=== PATIENT | female | born 1965 | race Caucasian/White ===

== ENCOUNTER 2017-10-15 13:00 | Emergency (ER) | payer OTHER ==
[2017-10-15 13:53] VITALS: BP 137/72
--- NOTE | 2017-10-15 14:12 | UC ---
Skin Complaint HPI - History of Current Complaint Chief Complaint: UCSkin Time Seen by Provider: 10/15/17 14:05 Stated Complaint: BUMP ON BACK OF HEAD Hx Last Menstrual Period: july 13, 2014 Onset/Duration: Lasting Days Skin Exposure Onset/Duration: Days Ago Timing: Constant Onset Severity: Moderate Pain Intensity: 4 Location: Other - posterior left scalp Aggravating Factor(s): Touch - Allergy/Home Medications Allergies/Adverse Reactions: Allergies Allergy/AdvReac Type Severity Reaction Status Date / Time Sulfa (Sulfonamide Allergy See Comment Verified 10/15/17 13:47 Antibiotics) Home Medications: Home Medications Levothyroxine TAB* [Synthroid 25 MCG TAB*] 25 mcg PO DAILY 10/15/17 [History Confirmed 10/15/17] Review of Systems Constitutional: Negative Skin: Other - left posterior occipital lesion, Eyes: Negative ENT: Negative Respiratory: Negative Cardiovascular: Negative Gastrointestinal: Negative Genitourinary: Negative Motor: Negative Neurovascular: Negative Musculoskeletal: Negative Neurological: Negative Psychological: Negative Is Patient Immunocompromised?: No All Other Systems Reviewed And Are Negative: Yes PMH/Surg Hx/FS Hx/Imm Hx Previously Healthy: Yes - Surgical History Surgical History: Yes Surgery Procedure, Year, and Place: fibroid removal- - Social History Alcohol Use: Rare Substance Use Type: None Smoking Status (MU): Never Smoked Tobacco Type: Cigarettes Have You Smoked in the Last Year: No Physical Exam Triage Information Reviewed: Yes Appearance: Pain Distress, Obese Vital Signs: Initial Vital Signs Temp 36.7 C 10/15/17 13:48 Pulse 96 10/15/17 13:48 Resp 16 10/15/17 13:48 BP 137/72 10/15/17 13:48 Pulse Ox 100 10/15/17 13:48 Vital Signs Reviewed: Yes Eye Exam: Normal Eyes: Positive: Conjunctiva Clear ENT Exam: Normal ENT: Positive: Normal ENT inspection Dental Exam: Normal Neck exam: Normal, Other - tender posterior cervical adenopathy Neck: Positive: Enlarged Nodes @ - left posterior cervical Respiratory Exam: Normal Respiratory: Positive: Chest non-tender Cardiovascular Exam: Normal Skin: Positive: Other - left posterior occiput with scabbed lesion Course/Dx - Diagnoses Provider Diagnoses: lymphadenitis, skin lesion Discharge - Sign-Out/Discharge Documenting (check all that apply): Patient Departure - Discharge Plan Condition: Good Disposition: HOME Prescriptions: cephALEXin [Cephalexin] 500 mg PO TID #21 tab Patient Education Materials: Adenitis (ED) Referrals: Mulu Monroy PA [Primary Care Provider] - - Billing Disposition and Condition Condition: GOOD Disposition: Home
[2017-10-15 19:34] LABS: ABS Basophils 0.1 10^3/ul (0-0.2); ABS Eosinophils 0.2 10^3/ul (0-0.6); ABS Lymphocytes 1.6 10^3/ul (1.0-4.8); ABS Monocytes 0.5 10^3/ul (0-0.8); ABS Neutrophils 3.2 10^3/ul (1.5-7.7); ABS Nucleated RBC 0 10^3/ul; Eosinophil % 2.8 % (0-6); Hematocrit 46 % (35-47); Hemoglobin 15.4 g/dl (12.0-16.0); Lymphocyte % 29.2 % (25-47); Mean Corpuscular HGB Conc 34 g/dl (31-36); Mean Corpuscular Hemoglobin 30 pg (27-31); Mean Corpuscular Volume 90 fL (80-97); Nucleated Red Blood Cells % 0.1; Platelet Count Platelets clumped. 10^3/ul (150-450); Red Blood Count 5.11 10^6/ul (4.00-5.40); Red Cell Distribution Width 14 % (10.5-15); White Blood Count 5.5 10^3/ul (3.5-10.8)
--- NOTE | 2017-10-16 08:07 | UC ---
- Progress Note Progress Note: RN to call pt. WBC / H/H ok, but platelets clumped. Monocytes a little elevated, nonspecific. Recommend f/u with PCP, next 1-2 weeks. Seek medical attention for worse or new problems. Discharge - Sign-Out/Discharge Documenting (check all that apply): Post-Discharge Follow Up - Discharge Plan Condition: Good Disposition: HOME Prescriptions: cephALEXin [Cephalexin] 500 mg PO TID #21 tab Patient Education Materials: Adenitis (ED) Referrals: Mulu Monroy PA [Primary Care Provider] - - Billing Disposition and Condition Condition: GOOD Disposition: Home
== END 2017-10-15 15:09 | disposition home or self-care (01) ==
LOC: UCCORT 13:00
DX: I88.9 Nonspecific lymphadenitis, unspecified (principal); L98.9 Disorder of the skin and subcutaneous tissue, unspecified; Z88.2 Allergy status to sulfonamides
CPT/HCPCS: 36415; 85025; 86617; 86618; 99212; G0463

== ENCOUNTER 2018-06-10 16:48 | Emergency (ER) | payer OTHER ==
--- OUTSIDE RECORDS SUMMARY | 2018-06-10 17:04 | XMS REPORT | Continuity of Care Document ---
:1965 External Reference #:[id number] Author Name Gerald Prado MD Address [address] [place] [address] Care Team Providers Name Role Phone Shira Monroy RPAC Care Team Information Cath Lab Technologist Unavailable Shira Monroy RPAC Primary Care Physician Unavailable Payers Date Identification Numbers Payment Provider Subscriber Policy Number: [id number] [employer] Isaiah Cheema PayID: [id number] [address] [place] [address] Policy Number: [id number] [facility] Isaiah Campa Curtis PayID: [id number] [address] [place] [address] Advance Directives Description No Information Available Problems Date Description Provider Status Onset: 11/27/2010 Abnormal cervical Papanicolaou smear Shira Monroy RPAC Active Note: remote Onset: 11/27/2010 Allergic rhinitis Shira Monroy RPAC Active Onset: 11/27/2010 Obesity Shira Monroy RPAC Active Onset: 11/27/2010 Intrinsic asthma without status Shira Monroy RPAC Active asthmaticus Onset: 10/03/2014 Obstructive sleep apnea of adult Shira Monroy RPAC Active Note: APAP Onset: 11/06/2015 Uterine leiomyoma Shira Monroy RPAC Active Note: several, with abnl menses Onset: 06/29/2017 Chest pain Shira Monroy RPAC Active Onset: 06/29/2017 Mild persistent asthma Shira Monroy RPAC Active Onset: 06/29/2017 Palpitations Shira Monroy RPAC Active Onset: 10/31/2017 Hypothyroidism Shira Monroy, 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 Resolved Resolved: 06/29/2017 Onset: 04/28/2017 Otitis media Rodrigue Smith M.D. Resolved Resolved: 06/29/2017 Family History Date Family Member(s) Observation Comments Father CAD sudden in 60's Father due to Heart Disease () Father due to Diabetes () - age 69 Mother Osteoporosis Mother due to Diabetes () Mother Diabetes Mother due to Heart Disease () - age 89 Mother CHF Mother Hypertension First Son 15 First Son Non Contributory First Daughter Non Contributory First Daughter 27 First Brother Diabetes First Brother due to Unknown Causes () First Brother Spinal injury trauma Second Brother Alive First Sister CAD premature, 40's First Sister Alive Second Sister Alive Social History Type Date Description Comments Sex Unknown Marital Status Lives With Son Lives With Diet Patient follows no dietary restrictions 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 Also works at [employer] Independent with all ADL's Tobacco Use Start: Unknown End: Former Cigarette Smoker in teens only Unknown ETOH Use Denies alcohol use Recreational Drug Use Denies Drug Use Tobacco Use Start: Unknown End: Patient is a former quit many years ago. smoker Smoking Status Reviewed: 05/18/18 Patient is a former quit many years ago. smoker Allergies, Adverse Reactions, Alerts Date Description Reaction Status Severity Comments 07/19/2013 Sulfa Antibiotics lips swell Active 03/06/2017 Amoxicillin pruritis Active 07/13/2017 Cetirizine dizziness Active Medications Medication Date Status Form Strength Qnty SIG Indications Ordering Provider Fluticasone 01/19/20 Active Suspension 50mcg/Act 2 sprays Ortez, Propionate 18 intranasa Susanne, l every [employer] day Ibuprofen 12/05/19 Active Tablets 800mg 60tab take one M54.2 Tam, 18 s tablet by Amandeep, mouth M.D. every 6- 8 hours with food as needed for pain Levothyroxine 11/01/19 Active Tablets 75mcg 90tab 1 tab by Tam, Sodium 18 s mouth Amandeep, every day M.D. Latanoprost 08/11/19 Active Solution 0.005% 2.500 1 drop H40.013 Prado , 18 ml each eye MD Gerald at night Montelukast 06/22/19 Active Tablets 10mg 90tab take one Tam, Sodium 14 s tablet by Amandeep, mouth M.D. every day Loratadine Active Tablets 10mg 1 by Unknown 00 mouth every day Ventolin HFA Active Aerosol 108(90Bas take 2 Unknown 00 e) puffs mcg/Act every 6 hours as needed for shortness of breath. Albuterol Active Nebulizer (2.5mg/3M 75ml nebulized Catalino, Sulfate 00 L) 0.083% every 4 MD Guillermina hours as needed for SOB Prednisone 05/14/19 Hx Tablets 10mg 21tab 4 po J20.9 Catalino, 19 - s daily x 2 MD Guillermina 05/22/19 days, 19 then 3 po daily x 2 days, then 2 po daily x 2 days, 1 po daily x 3 days Ibuprofen 12/05/19 Hx Tablets 800mg 90tab one tab M54.2 Tam, 18 - s by mouth Amandeep, 12/05/19 q 6 hrs M.D. 18 as needed, with food, for pain Levothyroxine 07/10/19 Hx Tablets 25mcg 30tab Take One Tam, Sodium 18 - s Tablet By Amandeep, 11/01/19 Mouth M.D. 18 Every Day Metoprolol 06/30/19 Hx Tablets ER 25mg 90tab take one R07.9 Tam, Succinate ER 18 - 24HR s tablet by Amandeep, Unknown mouth M.D. once daily in the evening Azithromycin 04/28/19 Hx Tablets 250mg 6tabs 2 tabs by H66.92 Steen[place]en 18 - mouth day , 06/30/19 onealyssa 18 one tab M.D. by mouth days 2-5 Ibuprofen 02/14/20 Hx Tablets 600mg 60tab 1 tab by Tam, 17 - s mouth Amandeep, 08/11/19 every 6 M.D. 18 hours with food, as needed for pain Premarin 02/14/20 Hx Cream 0.625mg/G 30gm 04/09 N77.1 Yonatan, 17 - M applicato Amandeep, Unknown rful M.D. intravagi noel weekly as needed Amoxicillin 02/14/20 Hx Tablets 875mg 20tab 1 tab by J06.9 Yonatan, 17 - s mouth Amandeep, 03/06/20 twice a M.D. 17 day Oxybutynin 12/04/19 Hx Tablets ER 5mg 30tab 1 tab by Yonatan, Chloride ER 17 - 24HR s mouth Amandeep, Unknown every M.D. evening Amoxicillin/Cla 10/16/19 Hx Tablets 875-125mg 20tab take 1 J01.90 David vulanate 17 - s tablet [place]ras, Potassium 10/27/19 every 12 M.D. 17 hours for 10 days Progesterone 05/15/19 Hx Capsules 200mg 7caps 1 by N92.4 Yonatan Micronized 17 - mouth Amandeep, 10/16/19 every day M.D. 17 Work Note 05/15/19 Hx Evaluated N92.4 Yonatan 17 - at [facility], 11/26/19 Primary M.D. 17 Care on 05/15/16. Excuse from work until 05/17/16 Cephalexin 05/07/19 Hx Tablets 500mg 20tab 1 tab (or J02.9 Yonatan 17 - s cap) by Amandeep, 05/17/19 mouth M.D. 17 twice a day Advair HFA 04/14/19 Hx Aerosol 230-21mcg inhale Asthma & 17 - /Act two puffs Allergy 06/30/19 by mouth Associate 18 twice a s, pc day Permethrin 04/02/20 Hx Cream 5% 180gm apply to [place] 16 - full body Norman Herr, 05/07/19 neck down DO 17 at night - leave on 8-12 hours then wash off. repeat in 2 wks Cyproheptadine 04/02/20 Hx Tablets 4mg 30tab 1 tab by KWABENA French 16 - s mouth Norman Herr, 05/07/19 three DO 17 times a day as needed for itching Cephalexin 02/05/20 Hx Tablets 500mg 30tab 1 tab (or J06.9 Dariel 16 - s cap) by Norman Herr, 05/07/19 mouth DO 17 three times a day Wrist 09/13/19 Hx Misc One for use G56.01 Dariel, Splint/Cock-Up/ 16 - at Norman Herr, Right/Canvas/La 09/30/19 nighttime DO rge 16 . (medium or large) Meclizine HCL 09/13/19 Hx Tablets 12.5mg 30tab one-two H81.10 Dariel 16 - s tabs Norman Herr, 02/06/20 every 6 DO 16 hour by mouth as needed dizziness Work Note 09/13/19 Hx Evaluated Dariel 16 - at Norman Herr, 10/29/19 Primary DO 16 Care for dizziness and elevated BP reading. Please excuse from work today Latanoprost 07/26/19 Hx Solution 0.005% 1unit 1 drop H40.013 Johan 16 - s each eye MD Gerald 10/16/19 at night 17 Ventolin HFA 07/08/19 Hx Aerosol 108mcg/Ac 2unit 1-2 Homa, 15 - t s inhalatio Ita 10/24/19 ns every , MD Alaniz 4 hours as needed Cetirizine HCL 07/08/19 Hx Tablets 10mg 30tab 1 by Luther, 15 - s mouth Ita 10/24/19 every day , MD Alaniz as needed for allergy symptoms Advair HFA 03/06/20 Hx Aerosol 230-21mcg inhale Unknown 14 - /Act two puffs 06/21/19 by mouth 16 twice a day Advair HFA 02/01/20 Hx Aerosol 115/21 12uni use 1-2 Luther, 13 - ts inhalatio Ita 10/28/19 ns twice , 15 daily Hydrocortisone 07/20/19 Hx Cream 1% Thin Homa, Plus 13 - layer to Ita 06/21/19 itchy , 16 area on (L) chest tid Albuterol 06/08/19 Hx Nebulizer (2.5mg/3M 90uni nebulized Luther, Sulfate 13 - L) 0.083% ts every 6 Ita 08/11/19 hours as , 18 needed Ibuprofen 03/25/20 Hx Tablets 800mg 90tab one tab Homa, 11 - s by mouth Ita 06/21/19 q 6 hrs , 16 as needed with food for pain Proair HFA Hx Aerosol 108(90Bas 1-2 Unknown 00 - e) inhalatio 06/21/19 mcg/Act ns every 16 4 hours as needed Loratadine Hx Tablets 10mg 30tab 1 tab by Dariel 00 - s mouth Norman Hagan., 02/06/20 every day DO 16 as needed for head congestio n/allergi es Advair Diskus Hx Aerosol 250-50mcg use 1 Unknown 00 - /Dose breath 05/07/19 twice a 17 day Ventolin HFA Hx Aerosol 108(90Bas 1-2 puffs Unknown 00 - e) every 4-6 08/11/19 mcg/Act hours as 18 needed Loratadine Hx Capsules 10mg 1 by Unknown 00 - mouth 06/30/19 every day 18 Ibuprofen Hx Capsules 200mg as needed Unknown - 02/14/20 17 Breo Ellipta Hx Aerosol 200-25mcg Rubinstei 00 - /Inh n, 08/11/19 Alfredito Walters MD Cetirizine HCL Hx Tablets 10mg 1 tablet Rubinstei 00 - once n, 07/14/19 daily. Alfredito Walters MD Cetirizine HCL Hx Tablets 10mg 1 by Unknown 00 - mouth 08/11/19 every day 18 Latanoprost Hx Solution 0.005% 1 drop Catie Prado - each eye MD Gerald 08/11/19 at night 18 Immunizations CPT Code Status Date Vaccine Lot # [id number] Given 07/19/2013 Tdap injection Vital Signs Date Vital Result Comment 05/14/2018 1:51pm BP Systolic Sitting Left Arm 118 mmHg BP Diastolic Sitting Left Arm 68 mmHg Body Temperature 99.1 F Heart Rate 86 /min Respiratory Rate 18 /min Height 67 inches 5'7" Weight 224.00 lb BMI (Body Mass Index) 35.1 kg/m2 BSA (Body Surface Area) 2.12 m2 Gonzales body weight in kilograms 61 kg O2 % BldC Oximetry 98 % ra 12/04/2017 10:31am BP Systolic Sitting Right Arm 118 mmHg BP Diastolic Sitting Right Arm 78 mmHg Body Temperature 99.1 F Heart Rate 78 /min reg Respiratory Rate 24 /min Height 67 inches 5'7" Weight 238.00 lb BMI (Body Mass Index) 37.3 kg/m2 BSA (Body Surface Area) 2.18 m2 Gonzales body weight in kilograms 61 kg O2 % BldC Oximetry 98 % ra 10/13/2017 2:33pm BP Systolic Sitting Right Arm 128 mmHg BP Diastolic Sitting Right Arm 64 mmHg Heart Rate 75 /min Respiratory Rate 18 /min Height 67 inches 5'7" Weight 241.00 lb BMI (Body Mass Index) 37.7 kg/m2 BSA (Body Surface Area) 2.19 m2 Gonzales body weight in kilograms 61 kg O2 % BldC Oximetry 99 % Room air 08/26/2017 1:08pm BP Systolic Sitting Left Arm 128 mmHg BP Diastolic Sitting Left Arm 92 mmHg Heart Rate 80 /min Respiratory Rate 16 /min Height 67 inches 5'7" Weight 242.00 lb BMI (Body Mass Index) 37.9 kg/m2 BSA (Body Surface Area) 2.19 m2 Gonzales body weight in kilograms 61 kg 07/22/2017 1:46pm BP Systolic Sitting Left Arm 120 mmHg BP Diastolic Sitting Left Arm 65 mmHg BP Systolic Standing Resting Right Arm 125 mmHg BP Diastolic Standing Resting Right Arm 70 mmHg Heart Rate 81 /min Respiratory Rate 18 /min Height 67 inches 5'7" Weight 240.00 lb BMI (Body Mass Index) 37.6 kg/m2 BSA (Body Surface Area) 2.19 m2 Gonzales body weight in kilograms 61 kg 06/29/2017 9:55am BP Systolic Sitting Right Arm 138 mmHg BP Diastolic Sitting Right Arm 76 mmHg Heart Rate 88 /min Height 67 inches 5'7" Weight 239.00 lb BMI (Body Mass Index) 37.4 kg/m2 BSA (Body Surface Area) 2.18 m2 Gonzales body weight in kilograms 61 kg O2 % BldC Oximetry 98 % 04/28/2017 9:33am BP Systolic Sitting Left Arm 134 mmHg BP Diastolic Sitting Left Arm 87 mmHg Body Temperature 98.3 F Heart Rate 90 /min Respiratory Rate 18 /min Height 67 inches 5'7" Weight 240.00 lb BMI (Body Mass Index) 37.6 kg/m2 BSA (Body Surface Area) 2.19 m2 Gonzales body weight in kilograms 61 kg O2 % BldC Oximetry 99 % 03/06/2017 1:34pm BP Systolic Sitting Left Arm 118 mmHg BP Diastolic Sitting Left Arm 80 mmHg Heart Rate 79 /min Height 67 inches 5'7" Weight 241.00 lb BMI (Body Mass Index) 37.7 kg/m2 BSA (Body Surface Area) 2.19 m2 Gonzales body weight in kilograms 61 kg O2 % BldC Oximetry 97 % 02/13/2017 1:39pm BP Systolic Sitting Right Arm 118 mmHg BP Diastolic Sitting Right Arm 80 mmHg Body Temperature 99.2 F Heart Rate 74 /min Respiratory Rate 18 /min Height 67 inches 5'7" Weight 241.00 lb BMI (Body Mass Index) 37.7 kg/m2 BSA (Body Surface Area) 2.19 m2 Gonzales body weight in kilograms 61 kg O2 % BldC Oximetry 98 % 11/28/2016 10:09am BP Systolic Sitting Left Arm 122 mmHg BP Diastolic Sitting Left Arm 70 mmHg Heart Rate 90 /min Respiratory Rate 24 /min Height 67 inches 5'7" Weight 244.00 lb BMI (Body Mass Index) 38.2 kg/m2 BSA (Body Surface Area) 2.20 m2 Gonzales body weight in kilograms 61 kg O2 % BldC Oximetry 96 % 10/15/2016 3:52pm BP Systolic 121 mmHg BP Diastolic 75 mmHg Body Temperature 98.0 F Heart Rate 71 /min Respiratory Rate 12 /min Height 67 inches 5'7" Weight 246.00 lb BMI (Body Mass Index) 38.5 kg/m2 BSA (Body Surface Area) 2.21 m2 Gonzales body weight in kilograms 61 kg O2 % BldC Oximetry 96 % 05/15/2016 10:18am BP Systolic Sitting Right Arm 134 mmHg BP Diastolic Sitting Right Arm 76 mmHg Height 67 inches 5'7" Weight 247.44 lb BMI (Body Mass Index) 38.7 kg/m2 BSA (Body Surface Area) 2.21 m2 05/07/2016 11:25am BP Systolic Sitting Right Arm 134 mmHg BP Diastolic Sitting Right Arm 76 mmHg Body Temperature 99.3 F Heart Rate 88 /min Height 67 inches 5'7" Weight 242.19 lb BMI (Body Mass Index) 37.9 kg/m2 BSA (Body Surface Area) 2.19 m2 O2 % BldC Oximetry 98 % 02/05/2016 2:31pm BP Systolic Sitting Right Arm 138 mmHg BP Diastolic Sitting Right Arm 76 mmHg Body Temperature 99.7 F Heart Rate 80 /min Height 67 inches 5'7" Weight 240.50 lb BMI (Body Mass Index) 37.7 kg/m2 BSA (Body Surface Area) 2.19 m2 O2 % BldC Oximetry 98 % 10/29/2015 3:12pm BP Systolic Sitting Left Arm 132 mmHg BP Diastolic Sitting Left Arm 82 mmHg Height 67 inches 5'7" Weight 236.25 lb BMI (Body Mass Index) 37.0 kg/m2 BSA (Body Surface Area) 2.17 m2 Last Menstrual Period [id number] 09/26/2015 9:46am BP Systolic Sitting Right Arm 132 mmHg BP Diastolic Sitting Right Arm 70 mmHg Respiratory Rate 72 /min Height 67 inches 5'7" Weight 231.00 lb BMI (Body Mass Index) 36.2 kg/m2 BSA (Body Surface Area) 2.15 m2 O2 % BldC Oximetry 98 % 09/13/2015 10:23am BP Systolic 142 mmHg BP Diastolic 80 mmHg Body Temperature 98.3 F Heart Rate 71 /min Respiratory Rate 16 /min Height 67 inches 5'7" Weight 235.00 lb BMI (Body Mass Index) 36.8 kg/m2 BSA (Body Surface Area) 2.17 m2 O2 % BldC Oximetry 94 % 10/24/2014 1:28pm BP Systolic 118 mmHg BP Diastolic 60 mmHg Heart Rate 80 /min Height 67 inches 5'7" Weight 243.00 lb BMI (Body Mass Index) 38.1 kg/m2 BSA (Body Surface Area) 2.20 m2 O2 % BldC Oximetry 97 % Ra 07/07/2014 2:06pm BP Systolic 130 mmHg BP Diastolic 74 mmHg Body Temperature 99.6 F Height 67 inches 5'7" Weight 223.00 lb O2 % BldC Oximetry 95 % 02/14/2014 1:24pm BP Systolic 30 mmHg BP Diastolic 72 mmHg Height 67 inches 5'7" Weight 221.00 lb O2 % BldC Oximetry 95 % 07/19/2013 9:27am BP Systolic 118 mmHg BP Diastolic 70 mmHg Height 67 inches 5'7" Weight 236.00 lb 02/01/2013 10:52am BP Systolic 128 mmHg BP Diastolic 78 mmHg Body Temperature 98.4 F Height 67 inches 5'7" Weight 231.00 lb 01/17/2013 10:05am BP Systolic 124 mmHg BP Diastolic 80 mmHg Height 68 inches 5'8" Weight 234.00 lb 01/14/2013 10:11am BP Systolic 126 mmHg BP Diastolic 78 mmHg Body Temperature 98.5 F Height 68 inches 5'8" Weight 233.00 lb 07/19/2012 10:56am BP Systolic 120 mmHg BP Diastolic 68 mmHg Body Temperature 99.0 F Height 68 inches 5'8" Weight 228.00 lb O2 % BldC Oximetry 96 % 06/21/2012 1:41pm BP Systolic 128 mmHg BP Diastolic 74 mmHg Height 67 inches 5'7" Weight 237.00 lb 06/07/2012 10:19am BP Systolic 130 mmHg BP Diastolic 80 mmHg Body Temperature 98.8 F Height 67 inches 5'7" Weight 229.00 lb 09/08/2011 11:42am BP Systolic 138 mmHg BP Diastolic 70 mmHg Body Temperature 99.0 F Weight 224.00 lb O2 % BldC Oximetry 99 % 03/25/2011 2:30pm BP Systolic 118 mmHg BP Diastolic 70 mmHg Height 67 inches 5'7" Weight 219.00 lb Results Test Date Facility Test Result H/L Range Note TSH Reflex FT4 01/01/2018 [facility] Thyroid Stim 2.26 uIU/mL N 0.30-4.20 1 And/Or FT3 [address] [place] [address] [phone] Reflex add FT3? N Reflex add FT4? Y TSH SerPl-aCnc 01/01/2018 N2N/CCD Import TSH [facility] 2.26 0.30-4.20 Laboratory test 10/29/2017 [facility] Thyroid Stim 6.07 High 0.30-4.[address] Hormone uIU/mL [place], [place] [id number] [phone] Thyroid 10/29/2017 [facility] Thyroglobulin 6.5 IU/mL High 0.0-0.[address] [place] [address] [phone] Thyroid Peroxidase Antibodies 141 IU/mL High 0-34 Serum or plasma 10/29/2017 N2N/CCD Import Serum or plasma 6.5 High 0.0- 0.9 thyroglobulin thyroglobulin antibody assay antibody assay (unit (units/volume) Serum or plasma 10/29/2017 N2N/CCD Import Serum or plasma 141 High 0-34 thyroperoxidase thyroperoxidase antibody assay (un antibody assay (units/volume) CBC Auto Diff 10/15/2017 [facility] White Blood Count 5.5 N 3.5-10.8 4 [phone] 10^3/u L Red Blood Count 5.11 10^6/uL N 4.00-5.40 Hemoglobin 15.4 g/dL N 12.0-16.0 Hematocrit 46 % N 35-47 Mean Corpuscular Volume 90 fL N 80-97 Mean Corpuscular Hemoglobin 30 pg N 27-31 Mean Corpuscular HGB Conc 34 g/dL N 31-36 Red Cell Distribution Width 14 % N 10.5-15 Platelet Count Platelets clumpe <SEE NOTE> 10^3/uL High 150-450 5 Abs Neutrophils 3.2 10^3/uL N 1.5-7.7 Abs Lymphocytes 1.6 10^3/uL N 1.0-4.8 Abs Monocytes 0.5 10^3/uL N 0-0.8 Abs Eosinophils 0.2 10^3/uL N 0-0.6 Abs Basophils 0.1 10^3/uL N 0-0.2 Abs Nucleated RBC 0 10^3/uL Granulocyte % 58.7 % N 38-83 Lymphocyte % 29.2 % N 25-47 Monocyte % 8.4 % High 0-7 Eosinophil % 2.8 % N 0-6 Basophil % 0.9 % N 0-2 Nucleated Red Blood Cells % 0.1 Laboratory test 10/15/2017 [facility] Lyme Disease Negative Negative 6 finding [phone] Serology Lyme Western Blot 10/15/2017 [facility] Lyme Disease Negative Negative [phone] IgG Ab WB Lyme Disease IgG Bands Present p45,p39 kDa Lyme Disease IgM Ab WB Negative Negative Lyme Disease IgM Bands Present No bands detecte <SEE NOTE> kDa 7 Lyme Disease Interpretation See Comment 8 Automated blood 07/09/2017 N2N/CCD Import Automated blood 326 155-360 platelet count platelet count Automated blood 07/09/2017 N2N/CCD Import Automated blood 10.3 8.9-12.4 platelet mean platelet mean volume volume measurement measurement Automated 07/09/2017 N2N/CCD Import Automated 30.2 25.9-32.7 erythrocyte mean erythrocyte mean corpuscular corpuscular hemoglobin hemoglobin (mass per erythrocyte) Automated 07/09/2017 N2N/CCD Import Automated 33.9 30.8-34.3 erythrocyte mean erythrocyte mean corpuscular corpuscular hemoglobin hemoglobin concentration measurement (mass/volume) Automated 07/09/2017 N2N/CCD Import Automated 89.2 80.9-99.0 erythrocyte mean erythrocyte mean corpuscular corpuscular volume volume Basophils/leuk 07/09/2017 N2N/CCD Import Basophils/leuk 0.6 0.0-1.1 NFr Bld Auto NFr Bld Auto Blood 07/09/2017 N2N/CCD Import Blood 4.43 3.90-5.40 erythrocytes erythrocytes automated count automated count (number/volume) (number/volume) Blood hemoglobin 07/09/2017 N2N/CCD Import Blood hemoglobin 13.4 11.6- 15.8 measurement measurement (mass/volume) (mass/volume) Blood leukocytes 07/09/2017 N2N/CCD Import Blood leukocytes 9.4 3.1- 10.7 automated count automated count (number/volume) (number/volume) Blood monocytes 07/09/2017 N2N/CCD Import Blood monocytes 0.91 High 0.3- 0.9 automated count automated count (number/volume) (number/volume) Eosinophil/leuk 07/09/2017 N2N/CCD Import Eosinophil/leuk 2.3 0.0-6.6 NFr Bld Auto NFr Bld Auto Lymphocytes/leuk 07/09/2017 N2N/CCD Import Lymphocytes/leuk 25.6 20.0- 42.0 NFr Bld Auto NFr Bld Auto Monocytes/leuk 07/09/2017 N2N/CCD Import Monocytes/leuk 9.7 4.3-13.2 NFr Bld Auto NFr Bld Auto Neutrophils # Bld 07/09/2017 N2N/CCD Import Neutrophils # Bld 5.79 1.8- 7.0 Auto Auto Neutrophils/leuk 07/09/2017 N2N/CCD Import Neutrophils/leuk 61.8 40.4- 72.8 NFr Bld Auto NFr Bld Auto RDW RBC Auto 07/09/2017 N2N/CCD Import RDW RBC Auto 41.9 3-47 RDW RBC Auto-Rto 07/09/2017 N2N/CCD Import RDW RBC Auto-Rto 13.2 11.7- 14.4 Serum or plasma 07/09/2017 N2N/CCD Import Serum or plasma 205 High <150 triglyceride triglyceride measurement measurement (mass/vol (mass/volume) Serum or plasma 07/09/2017 N2N/CCD Import Serum or plasma 149 <200 cholesterol cholesterol measurement measurement (mass/volu (mass/volume) Serum or plasma 07/09/2017 N2N/CCD Import Serum or plasma 63 < 100 cholesterol in cholesterol in LDL measurement LDL measurement by by calculation (mass/volume) Serum or plasma 07/09/2017 N2N/CCD Import Serum or plasma 45 >40 cholesterol in cholesterol in HDL measurement HDL measurement (ma (mass/volume) LDL Cholesterol 07/09/2017 [facility] Cholesterol 149 <200 9, 10 [facility]dL [place], [place] [id number] [phone] Triglycerides 205 mg/dL High <150 11 HDL Cholesterol 45 mg/dL >40 12 LDL-Cholesterol 63 mg/dL < 100 13 Comprehensive Metabolic 07/09/2017 [facility] Glucose 113 mg/dL High 74-106 Panel [address] [place], [place] [id number] [phone] BUN 18 mg/dL N 7-18 Creatinine 0.8 mg/dL N 0.6-1.3 Glom Filtration Rate, Estimate >60 mL/min >60 If >60 mL/min >60 14 BUN/Creat 22.5 ratio Sodium 139 mmol/L N 136-145 Potassium 4.0 mmol/L N 3.5-5.1 Chloride 107 mmol/L N 98-107 Carbon Dioxide 27 mmol/L N 21-32 Anion Gap 5 mEq/L Low 8-16 Calcium 8.9 mg/dL N 8.5-10.1 Total Protein 7.6 g/dL N 6.4-8.2 Albumin 3.9 g/dL N 3.4-5.0 Globulin 3.7 g/dL N 1.9-4.3 Alb/Glob 1.1 ratio Bilirubin,Total 0.2 mg/dL N 0.2-1.0 Sgot/Ast 18 U/L N 15-37 SGPT/Alt 20 U/L N 12-78 Alkaline Phosphatase 75 U/L N 45-117 Laboratory test finding 07/09/2017 [facility] CK 250 U/L High 26-192 15 [address] [place] [address] [phone] Troponin-I < 0.015 ng/mL 16 Thyroid Stim Hormone 6.60 uIU/mL High 0.30-4.20 17 Alt SerPl-cCnc 07/09/2017 N2N/CCD Import Alt SerPl-cCnc 20 12-78 Albumin/Glob SerPl 07/09/2017 N2N/CCD Import Albumin/Glob 1.1 SerPl Anion Gap 07/09/2017 N2N/CCD Import Anion Gap 5 Low 8-16 SerPl-sCnc SerPl-sCnc BUN/Creat SerPl 07/09/2017 N2N/CCD Import BUN/Creat SerPl 22.5 Chloride 07/09/2017 N2N/CCD Import Chloride 107 98-107 SerPl-sCnc SerPl-sCnc Globulin Ser 07/09/2017 N2N/CCD Import Globulin Ser 3.7 1.9-4.3 Calc-mCnc Calc-mCnc Potassium 07/09/2017 N2N/CCD Import Potassium 4.0 3.5-5.1 SerPl-sCnc SerPl-sCnc Serum carbon 07/09/2017 N2N/CCD Import Serum carbon 27 21-32 dioxide dioxide measurement measurement Serum or plasma 07/09/2017 N2N/CCD Import Serum or plasma 3.9 3.4-5.0 albumin albumin measurement measurement (mass/volume) (mass/volume) Serum or plasma 07/09/2017 N2N/CCD Import Serum or plasma 75 45-117 alkaline alkaline phosphatase phosphatase measurement ( measurement (enzymatic activity/volume) Automated blood 07/09/2017 N2N/CCD Import Automated blood 2.40 1.0-4.0 lymphocyte count lymphocyte count (number/volume) (number/volume) Automated blood 07/09/2017 N2N/CCD Import Automated blood 39.5 36.0- 46.1 hematocrit (volume hematocrit fraction) (volume fraction) Automated blood 07/09/2017 N2N/CCD Import Automated blood 0.22 0.0-0.5 eosinophil count eosinophil count Automated blood 07/09/2017 N2N/CCD Import Automated blood 0.06 0.0-0.1 basophil count basophil count (count/volume) (count/volume) CBS W/Automated 07/09/2017 [facility] White Blood Count 9.4 K/uL N 3.1-10.7 Diff [address] [place] [address] [phone] Red Blood Count 4.43 M/uL N 3.90-5.40 Hemoglobin 13.4 gm/dL N 11.6-15.8 Hematocrit 39.5 % N 36.0-46.1 Mean Cell Volume 89.2 fl N 80.9-99.0 Mean Corpuscular HGB 30.2 pg N 25.9-32.7 Mean Corpuscular HGB Conc 33.9 g/dL N 30.8-34.3 Platelet Count 326 K/uL N 155-360 Red Cell Distri Width SD 41.9 fl N 3-47 Red Cell Distri Width %CV 13.2 % N 11.7-14.4 Mean Platelet Volume 10.3 fL N 8.9-12.4 Neut% 61.8 % N 40.4-72.8 Lymph % 25.6 % N 20.0-42.0 [place] % 9.7 % N 4.3-13.2 Eo% 2.3 % N 0.0-6.6 Bas% 0.6 % N 0.0-1.1 Neut# 5.79 K/uL N 1.8-7.0 Lymph # 2.40 K/uL N 1.0-4.0 [place] # 0.91 K/uL High 0.3-0.9 Eos # 0.22 K/uL N 0.0-0.5 Baso # 0.06 K/uL N 0.0-0.1 Serum sodium 07/09/2017 N2N/CCD Import Serum sodium 139 136-145 measurement measurement Serum or plasma 07/09/2017 N2N/CCD Import Serum or plasma 18 7-18 urea nitrogen urea nitrogen measurement measurement (mass/vo (mass/volume) Serum or plasma 07/09/2017 N2N/CCD Import Serum or plasma 18 15-37 aspartate aspartate aminotransferase aminotransferase measure measurement (enzymatic activity/volume) Serum or plasma 07/09/2017 N2N/CCD Import Serum or plasma 8.9 8.5-10.1 calcium measurement calcium (mass/volume) measurement (mass/volume) Serum or plasma 07/09/2017 N2N/CCD Import Serum or plasma 0.8 0.6-1.3 creatinine creatinine measurement measurement (mass/volum (mass/volume) Serum or plasma 07/09/2017 N2N/CCD Import Serum or plasma 113 High 74- 106 glucose measurement glucose (mass/volume) measurement (mass/volume) Serum or plasma 07/09/2017 N2N/CCD Import Serum or plasma 7.6 6.4-8.2 protein measurement protein (mass/volume) measurement (mass/volume) Serum or plasma 07/09/2017 N2N/CCD Import Serum or plasma 0.2 0.2-1.0 total bilirubin total bilirubin measurement (mass/ measurement (mass/volume) Urine Culture 03/06/2017 [facility] Urine Culture URETHRAL [address] [place] [address] [phone] Quantity 10,000 - 50,000 <SEE NOTE> 19 Urine 02/13/2017 [facility] Urine STAPHYLOCOCCUS S Abnormal [address] Culture <SEE NOTE> [place] [address] [phone] Quantity 10,000 - 50,000 <SEE NOTE> 21 Recommended Therapy: ORAL CEPHALOSPOR <SEE NOTE> 22 Ast-GP67 02/13/2017 [facility] Penicillin G 0.[address] [place] [address] [phone] Oxacillin 2 S Tetracycline <=1 S Nitrofurantoin <=16 S Trimethoprim/Sulfamethoxazole <=10 S Gentamicin <=0.5 S Ciprofloxacin <=0.5 S Moxifloxacin <=0.25 S Levofloxacin 0.5 S Vancomycin <=0.5 S Urine Culture 11/28/2016 [facility] Urine Culture URETHRAL INDIRA 23 [address] [place] [address] [phone] Quantity > 100,000 CFU/mL N 24 CBS W/Automated 11/28/2016 [facility] White Blood 6.5 K/uL N 3.1-10.7 [address] [place] [address] [phone] Red Blood Count 5.25 M/uL N 3.90-5.40 Hemoglobin 14.9 gm/dL N 11.6-15.8 Hematocrit 44.4 % N 36.0-46.1 Mean Cell Volume 84.6 fl N 80.9-99.0 Mean Corpuscular HGB 28.4 pg N 25.9-32.7 Mean Corpuscular HGB Conc 33.6 g/dL N 30.8-34.3 Platelet Count 304 K/uL N 150-400 Red Cell Distri Width SD 48.9 fl High 3-47 Red Cell Distri Width %CV 16.0 % High 11.7-14.4 Mean Platelet Volume 11.2 fL N 8.9-12.4 Neut% 59.4 % N 40.4-72.8 Lymph % 26.8 % N 20.0-42.0 [place] % 10.9 % N 4.3-13.2 Eo% 2.3 % N 0.0-6.6 Bas% 0.6 % N 0.0-1.1 Neut# 3.85 K/uL N 1.8-7.0 Lymph # 1.74 K/uL N 1.0-4.0 [place] # 0.71 K/uL N 0.3-0.9 Eos # 0.15 K/uL N 0.0-0.5 Baso # 0.04 K/uL N 0.0-0.1 Iron-Tibc-%Sat 11/28/2016 [facility] Serum Iron 84 g/dL N 50-[address] [place] [address] [phone] Total Iron Binding Capacity 427 g/dL N 250-450 Transferrin %Saturation 20 % N 12-57 Glycohemoglobin A1c 11/28/2016 [facility] Glycohemoglobin 6.0 % N 4.2-6.[address] (A1c) [place] [address] [phone] eAG 126 mg/dL CBC 07/12/2016 [facility] White Blood Count 11.6 K/uL High 3.1-10.[address] [place] [address] [phone] Red Blood Count 2.98 M/uL Low 3.90-5.40 Hemoglobin 9.0 gm/dL Low 11.6-15.8 Hematocrit 27.7 % Low 36.0-46.1 Mean Cell Volume 93.0 fl N 80.9-99.0 Mean Corpuscular HGB 30.2 pg N 25.9-32.7 Mean Corpuscular HGB Conc 32.5 g/dL N 30.8-34.3 Platelet Count 293 K/uL N 150-400 Red Cell Distri Width %CV 12.8 % N 11.7-14.4 Mean Platelet Volume 10.6 fL N 8.9-12.4 Basic Metabolic Panel 07/11/2016 [facility] Glucose 130 mg/dL High 74-106 [address] [place] [address] [phone] BUN 14 mg/dL N 7-18 Creatinine 0.7 mg/dL N 0.6-1.3 Glom Filtration Rate, Estimate >60 mL/min >60 If >60 mL/min >60 28 BUN/Creat 20.0 ratio Sodium 140 mmol/L N 136-145 Potassium 4.4 mmol/L N 3.5-5.1 Chloride 108 mmol/L High 98-107 Carbon Dioxide 25 mmol/L N 21-32 Anion Gap 7 mEq/L Low 8-16 Calcium 7.5 mg/dL Low 8.5-10.1 CBC 07/11/2016 [facility] White Blood Count 13.7 K/uL High 3.1-10.7 [address] [place] [address] [phone] Red Blood Count 3.93 M/uL N 3.90-5.40 Hemoglobin 11.9 gm/dL N 11.6-15.8 Hematocrit 36.3 % 36.0-46.1 Mean Cell Volume 92.4 fl N 80.9-99.0 Mean Corpuscular HGB 30.3 pg N 25.9-32.7 Mean Corpuscular HGB Conc 32.8 g/dL N 30.8-34.3 Platelet Count 331 K/uL N 150-400 Red Cell Distri Width %CV 12.7 % N 11.7-14.4 Mean Platelet Volume 10.6 fL N 8.9-12.4 Comprehensive Metabolic 10/31/2015 [facility] Glucose 124 mg/dL High 74-106 Panel [address] [place] [address] [phone] BUN 14 mg/dL 7-18 Creatinine 0.9 mg/dL 0.6-1.3 Glom Filtration Rate, Estimate >60 mL/min >60 If >60 mL/min >60 29 BUN/Creat 15.5 ratio Sodium 137 mmol/L 136-145 Potassium 4.0 mmol/L 3.5-5.1 Chloride 105 mmol/L 98-107 Carbon Dioxide 23 mmol/L 21-32 Anion Gap 9 mEq/L 8-16 Calcium 8.5 mg/dL 8.5-10.1 Total Protein 7.4 g/dL 6.4-8.2 Albumin 4.1 g/dL 3.4-5.0 Globulin 3.3 g/dL 1.9-4.3 Alb/Glob 1.2 ratio Bilirubin,Total 0.4 mg/dL 0.2-1.0 Sgot/Ast 18 U/L 15-37 SGPT/Alt 26 U/L 12-78 Alkaline Phosphatase 75 U/L 45-117 CBC W/Automated Diff 10/31/2015 [facility] White Blood 7.3 K/uL 3.1-10.[address] [place] [address] [phone] Red Blood Count 4.68 M/uL 3.90-5.40 Hemoglobin 13.9 gm/dL 11.6-15.8 Hematocrit 42.1 % 36.0-46.1 Mean Cell Volume 90.0 fl 80.9-99.0 Mean Corpuscular HGB 29.7 pg 25.9-32.7 Mean Corpuscular HGB Conc 33.0 g/dL 30.8-34.3 Platelet Count 321 K/uL 155-360 Red Cell Distri Width SD 42.9 fl 3-47 Red Cell Distri Width %CV 13.3 % 11.7-14.4 Mean Platelet Volume 11.5 fL 8.9-12.4 Neut% 57.2 % 40.4-72.8 Lymph % 31.0 % 17.0-46.1 [place] % 6.8 % 4.3-13.2 Eo% 4.2 % 0.0-6.6 Bas% 0.8 % 0.0-1.1 Neut# 4.19 K/uL 1.8-7.0 Lymph # 2.27 K/uL 1.8-7.0 [place] # 0.50 K/uL 0.3-0.9 Eos # 0.31 K/uL 0.0-0.5 Baso # 0.06 K/uL 0.0-0.1 Laboratory 10/31/2015 [facility] Thyroid Stim 3.53 0.30-4.20 test finding [address] Hormone uIU/[place] [address] [phone] Laboratory 10/29/2015 [facility] Cytology SEE 30 , test finding [phone] Interface Order RESULT 31 BELOW Laboratory 10/29/2015 [facility] Cytopathology Results 32 test finding [address] Cervix/[place] [address] [phone] Laboratory 07/19/2013 N2N/CCD Import Cytology Pap See Note 33 test finding Laboratory 06/21/2012 N2N/CCD Import Cytology Pap HPV HR- 34 test finding LR- Laboratory 06/20/2011 [facility] Fibroid Or See Note 35 test finding [address] [place] [address] Uterus [phone] CBC Auto Diff 03/25/2011 N2N/CCD Import Abs Basophils 0.3 High 0-0.2 36 Abs Eosinophils 0.7 High 0-0.6 Abs Lymphs 2.0 1.0-4.8 Abs Mononuclear 0.7 0-0.8 Absolute Neutrophil Count 4.1 1.5-7.7 Basophil % 4.2 % High 0-2 Eosinophil % 8.4 % High 0-6 Gran % 52.0 % 38-83 Hematocrit 34 % Low 35-47 Hemoglobin 11.5 g/dL Low 12.0-16.0 Lymph % 26.3 % 25-47 Mean Corpuscular HGB Cone 34 g/dL 32-36 Mean Corpuscular Hemoglob 26 pg Low 27-31 Mean Corpuscular Volume 78 um3 Low 79-97 Mean Platelet Volume 10.8 um3 High 7.4-10.4 Mononuclear % 9.1 % High 1-9 Platelet Count 315 CUMM 150-450 Red Cell Count 4.38 CUMM 4.2-5.4 Redcell Distribution WDTH 16 % High 10.5-15 White Blood Count 7.8 CUMM 4.8-10.8 Laboratory test 03/25/2011 N2N/CCD Import TSH 2.80 MIU/ML 0.34-5.60 finding Laboratory test 03/25/2011 N2N/CCD Import Cytology Pap See Note 37 finding 1 E06.0, E03.9 2 E03.9 3 Thyroglobulin Antibody measured by Gisela Buddy Methodology Performed at: - [facility] [address] [id number] Night Cleaner: Cecily Draper MD, Phone: [phone] 4 [id number] Platelets clumped. Unable to perform accurate count. 6 No evidence of antibodies to B. burgdorferi detected. False negative results may occur in recently infected patients (<=2 weeks) due to low or undetectable antibody levels to B. burgdorferi. If recent exposure is suspected, a second sample should be collected and tested in 2-4 weeks. Test Performed by: [facility] [address] 7 No bands detected 8 Specific serologic response to B. burgdorferi infection is not detected, but cannot rule out early infection during which low or undetectable antibody levels to B. burgdorferi may be present. If clinically indicated, a new serum specimen should be submitted in 7-14 days. ADDITIONAL INFORMATION CDC criteria require >=5 bands for IgG or >=2 bands for IgM for the Immunoblot to be considered positive. Bands (e.g.,p41) may be detected in patients without Lyme disease, and patterns not meeting the CDC criteria should be interpreted with caution. Immunoblot should be ordered only on specimens that are positive or equivocal by a FDA-licensed Lyme disease antibody screening test (e.g., EIA). Test Performed by: [place] [address] 9 DIZZY, "CHEST FLUTTER", COUGHING 10 Reference Guidelines*: Desirable: ........... < 200 mg/dL Borderline High: ..... 200-239 mg/dL High: ................ >=240 mg/dL * The National Cholesterol Education Program (NCEP) 11 Reference Guidelines*: Normal: ............. < 150 mg/dL Borderline High: .... 150-199 mg/dL High: ............... 200-499 mg/dL Very High: .......... > 500 mg/dL * Source: National Cholesterol Education Program (NCEP) 12 Reference Guidelines*: Low HDL: ..... < 40 mg/dL Normal: ..... 40-60 mg/dL Desirable: ... > 60 mg/dL *The National Cholesterol Education Program(NCEP) 13 Reference Guidelines*: Optimal:........... <100 mg/dL Near Optimal....... 100-129 mg/dL Borderline High.... 130-159 mg/dL High............... 160-189 mg/dL Very High.......... >=190 mg/dL * Source: National Cholesterol Education Program (NCEP) 14 Note: Persistent reduction for 3 months or more in an eGFR <60 mL/min/1.73 m2 defines CKD. Patients with eGFR values >/=60 mL/min/1.73 m2 may also have CKD if evidence of persistent proteinuria is present. The original MDRD equation for estimated GFR is not valid for patients less than 18 years of age. Additional information may be found at www.kdoqi.org. 15 Original specimen hemolyzed. Called NOREEN at 1714 on 07/09/17 for specimen recollection. 16 0.0 - 0.045 ng/mL: Normal 0.046 - 0.5 ng/mL: Suggestive 0.6 - 1.5 ng/mL: Consistent 17 Original specimen hemolyzed. Called NOREEN at 1714 on 07/09/17 for specimen recollection. 18 N39.0 19 10,000 - 50,000 CFU/mL 20 STAPHYLOCOCCUS SAPROPHYTICUS 21 10,000 - 50,000 CFU/mL 22 ORAL CEPHALOSPORINS OR AMOXICILLIN/CLAV 23 N39.41 24 > 100,000 CFU/mL SPECIMEN IS A MIX OF GRAM POSITIVE ORGANISMS CONSISTENT WITH SKIN VAGINAL CONTAMINATION. SUGGEST REPEAT SPECIMEN IF CLINICALLY INDICATED. 25 D64.9 H81.10 R73.9 26 Elevated levels of HbA1c suggest the need for more aggressive treatment of glycemia. The [place] [employer] recommends that a primary goal of therapy should be a HbA1c of <7% and that physicians should re-evaluate the treatment regimen in patients with HbA1c values consistently >8%. 27 MENORRHAGIA;FIBROID UTERUS 28 Note: Persistent reduction for 3 months or more in an eGFR <60 mL/min/1.73 m2 defines CKD. Patients with eGFR values >/=60 mL/min/1.73 m2 may also have CKD if evidence of persistent proteinuria is present. The original MDRD equation for estimated GFR is not valid for patients less than 18 years of age. Additional information may be found at www.kdoqi.org. 29 Note: Persistent reduction for 3 months or more in an eGFR <60 mL/min/1.73 m2 defines CKD. Patients with eGFR values >/=60 mL/min/1.73 m2 may also have CKD if evidence of persistent proteinuria is present. The original MDRD equation for estimated GFR is not valid for patients less than 18 years of age. Additional information may be found at www.kdoqi.org. 30 [id number] SEE RESULT BELOW Name: ISAIAH CHEEMA Lokesh : [address]: Shira MEAD Acct: [id number] Unit: [id number] AGE: 50 Location: [facility] Re10/29/15 SEX: F Status: REG REF SPEC: [id number] ANSON: 10/29/15-[address]: Shira MEAD REQ: [id number] RECD: 10/31/15-1056 STATUS: RAISSA GARCIA DR: [facility], Lab _ ORDERED: IMAGE ANALYSIS COMMENTS: [id number] FINAL DIAGNOSIS Negative for Intraepithelial lesion or Malignancy A. Ectocervical/Endocervical Specimen Adequacy: Satisfactory of evaluation Transformation zone component identified Patient Information: HPV: Thin Layer Pap Test w/reflex to high risk HPV RNA testing when ASCUS Actual Specimen Date: 10/29/15 Last Menstrual Date: 10/17/15 Signed (signature on file) PAOLO Huerta(ASCP) 10/31 1229 This Pap test was evaluated with the assistance of the AT InternetPrep Test Imaging System. Due to cytologic findings at the spreading machine operator microscope, comprehensive manual rescreening by a Client Advocate may be required. The Pap Smear is a screening test designed to aid in the detection of premalignant and malignant conditions of the uterine cervix. It is not a diagnostic procedure and should not be used as the sole means of detecting cervical cancer. Both false- positive and false- negative reports do occur. Depending on your risk status, a Pap smear should be obtained and evaluated every 1-3 years. END OF REPORT * ML=Testing performed at Main Lab DEPARTMENT OF PATHOLOGY, [address] [place] [id number] Nikita Velasco M.D. Director [facility] # [id number] 32 Report may be viewed in PCI: Medical Record Forms -> LAB-STEWARD/STEWARDESS DINING ROOM Testing referred to: [place] [address] [facility] * [place] [address] Ph.#. [phone] Cytology Laboratory [address] [place] [address], [address] [place] [address] CYTOLOGY REPORT Name: Isaiah Cheema : 1965 (Age: 48) Sex: F Location: [facility] Med. Rec. # [id number] Date Collected: 07/19/2013 Billing #: [id number] Date Received: 07/19/2013 Physician(s): JIA REAGAN Source of Specimen: ENDOCERVICAL/ECTOCERVICAL THIN PREP Clinical Information: Date of Last Menstrual Period: None Provided Dysplasia/Cancer History: ASC-US: 06/21/12 [id number] Interpretation: NEGATIVE FOR INTRAEPITHELIAL LESION OR MALIGNANCY. FUNGAL ORGANISMS MORPHOLOGICALLY CONSISTENT WITH HUMAIRA SP. Specimen Adequacy: SATISFACTORY FOR EVALUATION. Additional Findings: ENDOCERVICAL/ TRANSFORMATION ZONE PRESENT. lar Electronic Signature PAOLO Evangelista (ASCP) Reported: 07/22/2013 Also seen by :PAOLO Love (ASC) [facility] ICD-9 Code(s) V72.31 A; 112.1 34 Cytology Laboratory [address] [place] [address], [address] [place] [address] CYTOLOGY REPORT Name: Isaiah Cheema : 1965 (Age: 46) Sex: F Location: [facility] Med. Rec. # Date Collected: 06/21/2012 Billing #: [id number] Date Received: 2012 Physician(s): SHIRA HUMPHREY Source of Specimen: ENDOCERVICAL/ ECTOCERVICAL THIN PREP Clinical Information: Date of Last Menstrual Period: 05/29/12 Menstrual History: Regular Specimen Adequacy: SATISFACTORY FOR EVALUATION. NO ENDOCERVICAL/TRANSFORMATION ZONE. General Categorization: SQUAMOUS ABNORMALITY Descriptive Evaluation: ATYPICAL SQUAMOUS CELLS OF UNDETERMINED SIGNIFICANCE (ASC-US). lr Electronic Signature Armani Crump MD Reported: 06/24/2012 Also seen by: PAOLO Ford (ASCP) [facility] HPV High Risk Date Ordered: 06/24/2012 Status: Signed Out Date Reported: 2012 High Risk NEGATIVE (HPV types 16, 18, 31, 33, 35, 39, 45, 51, 52, 56, 58, 59, 66, 68) Cervista HPV HR Electronic Signature PAOLO Ibarra (ASCP) [facility] HPV Low Risk Date Ordered: 06/24/2012 Status: Signed Out Date Reported: 06/28/2012 Low Risk NEGATIVE (HPV types 6, 11) In situ hybridization In situ hybridization was performed at [facility], [facility], [address], [address], [place], [place], [facility] The in situ hybridization report includes results which use analyte-specific reagents. These tests were developed and their performance characteristics determined by [facility]. They have not been cleared or approved by the U.S. Food and Drug Administration. The F.D.A. has determined that such clearance or approval is not necessary. The controls have been reviewed by the pathologist and are satisfactory. Electronic Signature Armani Crump MD [facility] ICD-9 Code(s) V72.31 A: 795.01 35 OPERATION/PROCEDURE Hysteroscopy, myomectomy, D+C, Novasure. DIAGNOSIS: PART 1: "ENDOMETRIAL CURETTINGS": ENDOMETRIAL POLYP. PART 2: "UTERINE FIBROID": FRAGMENTS OF HYALINIZED SMOOTH MUSCLE, COMPATIBLE WITH LEIOMYOMA. ENDOMETRIAL POLYP. JW/clf INTERPRETATION COMMENT Previous biopsy ([id number]) is reviewed and there is no evidence of endometrial polyp. GROSS Part 1. "ENDOMETRIAL CURETTINGS". The specimen is received in an appropriately labeled container. This contains 3.0 mL of pink tissue admixed with mucus. Filtered and submitted in toto within a single cassette. Part 2. The specimen is received in a single container labeled, "UTERINE FIBROID". This contains a cloth sac. This contains approximately 5 mL of fragmented soft tissue. Most of this is submitted within two cassettes, only some remnant is not submitted. WS/clf MICROSCOPIC Part 1: Sections show fragments of tissue composed of endometrial glands. The stroma is collagenized and fibrous. The glands are cystically dilated, occasionally branching lined by slightly stratified to single layer of columnar cells. The central portion has thick-walled coiled blood vessels. Part 2: Sections reveal fragments of whorled bundles of fusiform smooth muscle cells with oval nuclei. Mitotic figures, giant cells and anaplasia are absent. There are fragments of endometrial tissue with collagenized and fibrous stroma. The glands are cystically dilated, occasionally branching lined by slightly stratified to single layer of columnar cells. The central portion has thick-walled coiled blood vessels. PRE OPERATIVE DIAGNOSIS Excessive menstruation, leiomyomatous changes REVIEW CODE CODE: I Signed FRANCIS NUNEZ MD 1359 36 Basophilia % 37 Cytology Laboratory [address] [place] [address], [address] [place] [address] CYTOLOGY REPORT Name: Isaiah Cheema : 1965 (Age: 45) Sex: F Location: [facility] Soc. Sec. #: [id number] Date Collected: 03/25/2011 Billing #: [id number] Date Received: 03/26/2011 Physician(s): SHIRA HUMPHREY Source of Specimen: ENDOCERVICAL/ECTOCERVICAL THIN PREP Clinical Information: Date of Last Menstrual Period: 03/07/11 Menstrual History: Irregular Specimen Adequacy: SATISFACTORY FOR EVALUATION. NO ENDOCERVICAL/TRANSFORMATION ZONE. General Categorization: NEGATIVE FOR INTRAEPITHELIAL LESION OR MALIGNANCY. kfs Electronic Signature PAOLO Ibarra (ASCP) Reported: 03/28/2011 Also seen by:PAOLO Ibarra ( ASCP) [facility] ICD-9 Code(s) V72.31 Procedures Date Code Description Status 05/24/2018 82611 Scanning Computerized Ophthalmic Diagnostic Imaging, Completed Posterior 05/24/2018 35308 Visual Field Exam Extended, Unilateral Or Bilateral Completed 05/24/2018 90865 Eye Exam Est Patient Comprehensive Completed 01/21/2018 94926 Eye Exam Est Patient Comprehensive Completed 09/21/2017 23459 Scanning Computerized Ophthalmic Diagnostic Imaging, Completed Posterior 09/21/2017 19704 Visual Field Exam Extended, Unilateral Or Bilateral Completed 09/21/2017 39038 Eye Exam Est Patient Comprehensive Completed 09/14/2017 36366 Echocardiogram Complete Completed 09/07/2017 27955 Stress Test Interpre And Report Only Completed 09/07/2017 81961 Stress Test Physician Super Only Completed 08/10/2017 03807 Eye Exam Est Patient Comprehensive Completed 07/22/2017 89403 EKG-Tracing And Report Completed 12/03/2016 [id number] Mammogram Completed 09/06/2015 46125 Scanning Computerized Ophthalmic Diagnostic Imaging, Completed Posterior 07/26/2015 27992 Visual Field Exam Extended, Unilateral Or Bilateral Completed 06/21/2015 99723 Ophthalmic Ultrasound, Corneal Pachymetry, Completed Unilateral/Bilateral 06/21/2015 75022 Fundus Photography W/Interpretation & Report Completed 06/21/2015 96292 Eye Exam New Patient Comprehensive Completed 06/21/2015 29024 Gonioscopy Completed 12/28/2014 [id number] Mammogram Completed 12/25/2014 [id number] Mammogram Completed 02/14/2014 04213 Pressurized/Non-Pressurized Inhalation Treatment,Acute Completed Obstructio 02/14/2014 83377 Pulse Oximetry Completed 02/01/2013 29465 Pressurized/Non-Pressurized Inhalation Treatment,Acute Completed Obstructio 02/01/2013 79912 Pulse Oximetry Completed 01/14/2013 88201 Pressurized/Non-Pressurized Inhalation Treatment,Acute Completed Obstructio 06/20/2011 97860 Anesthesia, Lower Abdomen Surgery Not Otherwise Spec Completed 06/17/2011 19320 EKG Interpretation And Report Only Completed 07/26/2010 75321 Pulse Oximetry Completed 07/26/2010 83907 Pressurized/Non-Pressurized Inhalation Treatment,Acute Completed Obstructio 04/20/2008 16161 Pulse Oximetry Completed 04/20/2008 61677 Pressurized/Non-Pressurized Inhalation Treatment,Acute Completed Obstructio 10/26/2000 11439 Cryocautery Of Cervix Completed 09/18/2000 74453 Colposcopy With Biopsy Completed 07/15/2000 70216 Post- Care Only Completed 06/03/2000 54565 Section [facility] Completed Encounters Type Date Location Provider Dx Diagnosis Office Visit 05/14/2018 Primary Care Marianne Manning J20.9 Acute bronchitis, 1:45p Office H., [place] unspecified R06.2 Wheezing Office Visit 12/04/2017 10:30a Primary Care Shira Monroy M54.[address] [facility] H81.10 Benign paroxysmal vertigo, unspecified ear E03.9 Hypothyroidism, unspecified Office Visit 10/13/2017 2:30p Cardiology Office Lynda Haider, R06.02 Shortness of MD breath R07.2 Precordial pain R60.0 Localized edema Office Visit 08/26/2017 1:00p Cardiology Office Lynda Haider, R06.02 Shortness of MD breath R42 Dizziness and giddiness Office Visit 07/22/2017 1:30p Cardiology Office Lynda Haider, R07.2 Precordial pain MD R06.02 Shortness of breath H82.1 Vertiginous syndromes in diseases classd elswhr, right ear E03.9 Hypothyroidism, unspecified Office Visit 06/29/2017 9:45a Primary Care Porfirio, R07.9 Chest pain, Office Shira [facility] unspecified J45.30 Mild persistent asthma, uncomplicated R00.2 Palpitations Office Visit 04/28/2017 9:30a Primary Care Sarah, H66.92 Otitis media , Office Keara Husain unspecified, left ear Office Visit 02/13/2017 1:30p Primary Care [place], N39.0 Urinary tract Office Shira [facility] infection, site not specified N77.1 Vaginitis, vulvitis and vulvovaginitis in dis classd elswhr J06.9 Acute upper respiratory infection, unspecified Office Visit 11/28/2016 10:15a Primary Care Porfirio H81.10 Benign paroxysmal Office Shira [facility] vertigo, unspecified ear D64.9 Anemia, unspecified Z12.31 Encntr screen mammogram for malignant neoplasm of breast R73.9 Hyperglycemia, unspecified N39.41 Urge incontinence Office Visit 10/15/2016 3:40p Primary Care Jeison Hernandez, J01.90 Acute sinusitis, Office M.D. unspecified J45.909 Unspecified asthma, uncomplicated Office Visit 05/15/2016 10:00a Primary Care [place], N92.[address] [facility] in the premenopausal period D25.9 Leiomyoma of uterus, unspecified Office Visit 05/07/2016 11:15a Primary Care [place]io, J02.9 Acute pharyngitis, Office Shira, [facility] unspecified Office Visit 04/02/2016 10:00a Primary Care [place]io, B86 Scabies Office Shira, [facility] Office Visit 02/05/2016 2:15p Primary Care Por[place]io, J06.9 Acute upper Office [place], [facility] respiratory infection, unspecified Office Visit 10/29/2015 2:15p Primary Care Por[place]irio, Z00.[address] [facility] general adult medical exam w abnormal findings Z12.4 Encounter for screening for malignant neoplasm of cervix N92.6 Irregular menstruation, unspecified J45.909 Unspecified asthma, uncomplicated Office Visit 09/26/2015 9:45a Primary Care [place], R03.[address] [facility] blood-pressure reading, w/o diagnosis of htn Office Visit 09/13/2015 10:30a Primary Care [place]io, J30.9 Allergic rhinitis, Office [place], [facility] unspecified R03.0 Elevated blood-pressure reading, w/o diagnosis of htn G56.01 Carpal tunnel syndrome, right upper limb H81.10 Benign paroxysmal vertigo, unspecified ear Office Visit 09/06/2015 9:15a Ophthalmology Gerald Prado, H40.013 Open angle with borderline findings, low risk, bilateral H04.123 Dry eye syndrome of bilateral lacrimal glands Office Visit 07/26/2015 Ophthalmology Gerald Prado H40.013 Open angle with 9:30a borderline findings, low risk, bilateral Office Visit 10/24/2014 Primary Care Office Porfirio, V72.31 Routine Dog Beautician 1:30p Shira, Examination [facility] V76.2 Screening Malignant Neoplasm Cervix 626.8 Menstruation & Other Abnormal Bleeding Disorders Other 493.90 Asthma Unspec W/O Status Asthmaticus Office Visit 07/07/2014 2:20p [facility] Medicine Luther, 466.[address] [place] Jean Baptiste 493.92 Asthma Unspec W/ Acute Exacerbation Plan of Treatment Future Appointment(s):09/21/2018 2:15 pm - Gerald Prado MD at [facility]/ 18/2019 - Gerald Prado MDH40.013 Open angle with borderline findings, low risk , bilateralComments:- based upon cup/disc asymmetry- IOP 19, 18 today- discuss adherence to latanoprost- latanoprost 1 drop each eye at night- iop check 4 months; will repeat vf 24-2 at that time- oct rnfl intact today- vf non- specific deficits; will follow- fundus photos adequate for documentation 06/2015 - angle open on gonioscopy 06/2015- discussed potential for development of glaucoma- potential need for IOP lowering, drops, laser, or surgery- discussed vision loss and glaucoma- can use artificial tears prior to usingthe latanoprost to reduce the irritation- 4 months IOP checkFollow up:4 months iop check, vf 24-2
--- OUTSIDE RECORDS SUMMARY | 2018-06-10 17:04 | XMS REPORT | Continuity of Care Document ---
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 Hand Unavailable Payers Description No Information Available Advance Directives Description No Information Available Problems Description No Information Family History Description No Information Available Social History Type Date Description Comments Sex Unknown Allergies, Adverse Reactions, Alerts Description No Information Medications Description No Information Immunizations Description No Information Available Vital Signs Description No Information Available Results Description No Information Available Procedures Date Code Description Status 12/03/2016 [id number] Mammogram Completed Encounters Description No Information Available Plan of Treatment No Information Available
--- OUTSIDE RECORDS SUMMARY | 2018-06-10 17:05 | XMS REPORT | Continuity of Care Document ---
:1965 External Reference #:[id number] Author Name Guillermina Bae MD Address [address] [place] [address] Care Team Providers Name Role Phone Shira Monroy RPAC Care Team Information Ends Down Checker Unavailable Shira Monroy RPAC Primary Care Physician Unavailable Payers Date Identification Numbers Payment Provider Subscriber Policy Number: [id number] [employer] Isaiah Cheema PayID: [id number] [address] [place] [address] Policy Number: [id number] [facility] Isaiah Campa Curtis PayID: [id number] [address] [place] [address] Advance Directives Description No Information Available Problems [...] RPAC Active Onset: 10/31/2017 Hypothyroidism Shira Monroy, [facility]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 Also works at [employer] ADL's/IADL's Independent with all ADL's Tobacco Use Start: Unknown End: Former Cigarette Smoker in teens only Unknown ETOH Use Denies alcohol use Recreational Drug Use Denies Drug Use Tobacco Use Start: Unknown End: Patient is a former quit many years ago. smoker Smoking Status Reviewed: 05/14/18 Patient is a former quit many years ago. smoker Allergies, Adverse Reactions, Alerts Date Description Reaction Status Severity Comments 07/19/2013 Sulfa Antibiotics lips swell Active 03/06/2017 Amoxicillin pruritis Active 07/13/2017 Cetirizine dizziness Active Medications Medication Date Status Form Strength Qnty SIG Indications Ordering Provider Prednisone 05/14/19 Active Tablets 10mg 21tab 4 po J20.9 Catalino, 19 s daily x 2 MD Guillermina days, then 3 po daily x 2 days, then 2 po daily x 2 days, 1 po daily x 3 days Fluticasone 01/19/20 Active Suspension 50mcg/Act 2 sprays Ortez, Propionate 18 intranasa Susanne, l every LYRIC WRITER day Ibuprofen 12/05/19 Active Tablets 800mg 60tab [...] MD Guillermina hours as needed for SOB Ibuprofen 12/05/19 Hx Tablets 800mg 90tab one [...] Hx Tablets 600mg 60tab 1 tab by Yonatan, 17 - s mouth Amandeep, 08/11/19 every [...] Hx Evaluated N92.4 Yonatan 17 - [facility], 11/26/19 Primary M.D. 17 Care on 05/15/16. [...] Hx Cream 5% 180gm apply to [place] V[place] 16 - full body Normna Herr, 05/07/19 neck down DO 17 at [...] G56.01 Dariel, Splint/Cock-Up/ 16 - at [facility] E., Right/Canvas/La 09/30/19 nighttime DO rge 16 . (medium or large) Meclizine HCL 09/13/19 Hx Tablets 12.5mg 30tab one-two H81.10 Dariel 16 - s tabs Norman Hagan., 02/06/20 every 6 DO 16 hour by mouth as needed dizziness Work Note 09/13/19 Hx Evaluated Dariel 16 - at Norman Bentley., 10/29/19 Primary DO 16 Care for dizziness [...] 03/25/20 Hx Tablets 800mg 90tab one tab Luther, 11 - s by mouth Ita 06/21/19 q 6 hrs , 16 as needed with food for pain Proair HFA Hx Aerosol 108(90Bas 1-2 Unknown 00 - e) inhalatio 06/21/19 mcg/Act ns every 16 4 hours as needed Loratadine Hx Tablets 10mg 30tab 1 tab by Dariel 00 - s mouth Norman E., 02/06/20 every day DO 16 as needed for head congestio n/allergi es Advair Diskus Hx Aerosol 250-50mcg use 1 Unknown 00 - /Dose breath 05/07/19 twice a 17 day Ventolin HFA Hx Aerosol 108(90Bas 1-2 puffs Unknown - e) every 4-6 08/11/19 mcg/Act hours [...] CPT Code Status Date Vaccine Lot # [id number] Given 07/19/2013 Tdap injection Vital Signs Date Vital Result Comment 05/14/2018 1:51pm BP Systolic Sitting Left Arm 118 mmHg BP Diastolic Sitting Left Arm 68 mmHg Body Temperature 99.1 F Heart Rate 86 /min Respiratory Rate 18 /min Height 67 inches 5'7" Weight 224.00 lb BMI (Body Mass Index) 35.1 kg/m2 BSA (Body Surface Area) 2.12 m2 [place] body weight in kilograms 61 kg O2 % BldC Oximetry 98 % ra 12/04/2017 10:31am BP Systolic Sitting Right Arm 118 mmHg BP Diastolic Sitting Right Arm 78 mmHg Body Temperature 99.1 F Heart Rate 78 /min reg Respiratory Rate 24 /min Height 67 inches 5'7" Weight 238.00 lb BMI (Body Mass Index) 37.3 kg/m2 BSA (Body Surface Area) 2.18 m2 [place] body weight in kilograms 61 kg O2 % BldC Oximetry 98 % ra 10/13/2017 2:33pm BP Systolic Sitting Right Arm 128 mmHg BP Diastolic Sitting Right Arm 64 mmHg Heart Rate 75 /min Respiratory Rate 18 /min Height 67 inches 5'7" Weight 241.00 lb BMI (Body Mass Index) 37.7 kg/m2 BSA (Body Surface Area) 2.19 m2 [place] body weight in kilograms 61 kg O2 % BldC Oximetry 99 % Room air 08/26/2017 1:08pm BP Systolic Sitting Left Arm 128 mmHg BP Diastolic Sitting Left Arm 92 mmHg Heart Rate 80 /min Respiratory Rate 16 /min Height 67 inches 5'7" Weight 242.00 lb BMI (Body Mass Index) 37.9 kg/m2 BSA (Body Surface Area) 2.19 m2 [place] body weight in kilograms 61 kg 07/22/2017 [...] kg/m2 BSA (Body Surface Area) 2.19 m2 [place] body weight in kilograms 61 kg 06/29/2017 9:55am BP Systolic Sitting Right Arm 138 mmHg BP Diastolic Sitting Right Arm 76 mmHg Heart Rate 88 /min Height 67 inches 5'7" Weight 239.00 lb BMI (Body Mass Index) 37.4 kg/m2 BSA (Body Surface Area) 2.18 m2 [place] body weight in kilograms 61 kg O2 % BldC Oximetry 98 % 04/28/2017 9:33am BP Systolic Sitting Left Arm 134 mmHg BP Diastolic Sitting Left Arm 87 mmHg Body Temperature 98.3 F Heart Rate 90 /min Respiratory Rate 18 /min Height 67 inches 5'7" Weight 240.00 lb BMI (Body Mass Index) 37.6 kg/m2 BSA (Body Surface Area) 2.19 m2 [place] body weight in kilograms 61 kg O2 % BldC Oximetry 99 % 03/06/2017 1:34pm BP Systolic Sitting Left Arm 118 mmHg BP Diastolic Sitting Left Arm 80 mmHg Heart Rate 79 /min Height 67 inches 5'7" Weight 241.00 lb BMI (Body Mass Index) 37.7 kg/m2 BSA (Body Surface Area) 2.19 m2 [place] body weight in kilograms 61 kg O2 % BldC Oximetry 97 % ra 02/13/2017 1:39pm BP Systolic Sitting Right Arm 118 mmHg BP Diastolic Sitting Right Arm 80 mmHg Body Temperature 99.2 F Heart Rate 74 /min Respiratory Rate 18 /min Height 67 inches 5'7" Weight 241.00 lb BMI (Body Mass Index) 37.7 kg/m2 BSA (Body Surface Area) 2.19 m2 [place] body weight in kilograms 61 kg O2 % BldC Oximetry 98 % ra 11/28/2016 10:09am BP Systolic Sitting Left Arm 122 mmHg BP Diastolic Sitting Left Arm 70 mmHg Heart Rate 90 /min Respiratory Rate 24 /min Height 67 inches 5'7" Weight 244.00 lb BMI (Body Mass Index) 38.2 kg/m2 BSA (Body Surface Area) 2.20 m2 [place] body weight in kilograms 61 kg O2 % BldC Oximetry 96 % ra 10/15/2016 3:52pm BP Systolic 121 mmHg BP Diastolic 75 mmHg Body Temperature 98.0 F Heart Rate 71 /min Respiratory Rate 12 /min Height 67 inches 5'7" Weight 246.00 lb BMI (Body Mass Index) 38.5 kg/m2 BSA (Body Surface Area) 2.21 m2 [place] body weight in kilograms 61 kg O2 [...] Surface Area) 2.17 m2 Last Menstrual Period [id number] irregular 09/26/2015 9:46am BP Systolic Sitting Right [...] H/L Range Note TSH Reflex FT4 01/01/2018 [facility] Thyroid Stim 2.26 uIU/mL N 0.30-4.20 1 And/Or FT3 [address] Hormone [place], [place] [id number] [phone] Reflex add FT3? N Reflex add FT4? Y TSH SerPl-aCnc 01/01/2018 N2N/CCD [facility] 0.30[facility]4.20 Laboratory test 10/29/2017 [facility] Thyroid Stim 6.07 High 0.30-4.[address] Hormone uIU/mL [place], [place] [address] [phone] Thyroid 10/29/2017 [facility] Thyroglobulin 6.5 IU/mL High 0.0-0.[address] [place] [address] [phone] Thyroid Peroxidase Antibodies 141 IU/mL High 0-34 Serum or plasma 10/29/2017 N2N/CCD Import Serum or plasma 6.5 High 0.0- 0.9 thyroglobulin thyroglobulin antibody assay antibody assay (unit (units/volume) Serum or plasma 10/29/2017 N2N/CCD Import Serum or plasma 141 High 0-34 thyroperoxidase thyroperoxidase antibody assay (un antibody assay (units/volume) CBC Auto Diff 10/15/2017 [facility] White Blood Count 5.5 N 3.5-10.8 4 [phone] 10^3/u L Red Blood Count 5.11 10^6/uL [...] Blood Cells % 0.1 Laboratory test 10/15/2017 [facility] Lyme Disease Negative Negative 6 finding [phone] Serology Lyme Western Blot 10/15/2017 [facility] Lyme Disease Negative Negative [phone] IgG Ab WB Lyme Disease IgG Bands [...] HDL measurement (ma (mass/volume) LDL Cholesterol 07/09/2017 [facility] Cholesterol 149 <200 9, 10 Profile [address] [facility] mg/dL [place], [place] [id number] [phone] Triglycerides 205 mg/dL High <150 11 HDL Cholesterol 45 mg/dL >40 12 LDL-Cholesterol 63 mg/dL < 100 13 Comprehensive Metabolic 07/09/2017 [facility] Glucose 113 mg/dL High 74-106 Panel [address] [place], [place] [address] [phone] BUN 18 mg/dL N 7-18 Creatinine 0.8 [...] U/L N 45-117 Laboratory test finding 07/09/2017 [facility] CK 250 U/L High 26-[address] [place] [address] [phone] Troponin-I < 0.015 ng/mL 16 Thyroid Stim [...] 9.4 K/uL N 3.1-10.7 Diff [address] [place] [address] [phone] Red Blood Count 4.43 M/uL N 3.90-5.40 [...] 40.4-72.8 Lymph % 25.6 % N 20.0-42.0 [place] % 9.7 % N 4.3-13.2 Eo% 2.3 % N 0.0-6.6 Bas% 0.6 % N 0.0-1.1 Neut# 5.79 K/uL N 1.8-7.0 Lymph # 2.40 K/uL N 1.0-4.0 [place] # 0.91 K/uL High 0.3-0.9 Eos # [...] measurement (mass/ measurement (mass/volume) Urine Culture 03/06/2017 [facility] Urine Culture URETHRAL [address] [place] [address] [phone] Quantity 10,000 - 50,000 <SEE NOTE> 19 Urine 02/13/2017 [facility] Urine STAPHYLOCOCCUS S Abnormal [address] Culture <SEE NOTE> [place] [address] [phone] Quantity 10,000 - 50,000 <SEE NOTE> 21 Recommended Therapy: ORAL CEPHALOSPOR <SEE NOTE> 22 Ast-GP67 02/13/2017 [facility] Penicillin G 0.[address] [place] [address] [phone] Oxacillin 2 S Tetracycline <=1 S Nitrofurantoin <=16 S Trimethoprim/Sulfamethoxazole <=10 S Gentamicin <=0.5 S Ciprofloxacin <=0.5 S Moxifloxacin <=0.25 S Levofloxacin 0.5 S Vancomycin <=0.5 S Urine Culture 11/28/2016 [facility] Urine Culture URETHRAL INDIRA 23 [address] [place] [address] [phone] Quantity > 100,000 CFU/mL N 24 CBS W/Automated 11/28/2016 [facility] White Blood 6.5 K/uL N 3.1-10.7 [address] [place] [address] [phone] Red Blood Count 5.25 M/uL N 3.90-5.40 [...] 40.4-72.8 Lymph % 26.8 % N 20.0-42.0 [place] % 10.9 % N 4.3-13.2 Eo% 2.3 % N 0.0-6.6 Bas% 0.6 % N 0.0-1.1 Neut# 3.85 K/uL N 1.8-7.0 Lymph # 1.74 K/uL N 1.0-4.0 [place] # 0.71 K/uL N 0.3-0.9 Eos # 0.15 K/uL N 0.0-0.5 Baso # 0.04 K/uL N 0.0-0.1 Iron-Tibc-%Sat 11/28/2016 [facility] Serum Iron 84 g/dL N 50-170 [address] [place], [place] [address] [phone] Total Iron Binding Capacity 427 g/dL N 250-450 Transferrin %Saturation 20 % N 12-57 Glycohemoglobin A1c 11/28/2016 [facility] Glycohemoglobin 6.0 % N 4.2-6.3 [address] (A1c) [place], [place] [address] [phone] eAG 126 mg/dL CBC 07/12/2016 [facility] White Blood Count 11.6 K/uL High 3.1-10.[address] [place], [place] [address] [phone] Red Blood Count 2.98 M/uL Low 3.90-5.40 [...] fL N 8.9-12.4 Basic Metabolic Panel 07/11/2016 [facility] Glucose 130 mg/dL High 74-106 [address] [place] [address] [phone] BUN 14 mg/dL N 7-18 Creatinine 0.7 mg/dL N 0.6-1.3 Glom Filtration Rate, Estimate >60 mL/min >60 If >60 mL/min >60 28 BUN/Creat 20.0 ratio Sodium 140 mmol/L N 136-145 Potassium 4.4 mmol/L N 3.5-5.1 Chloride 108 mmol/L High 98-107 Carbon Dioxide 25 mmol/L N 21-32 Anion Gap 7 mEq/L Low 8-16 Calcium 7.5 mg/dL Low 8.5-10.1 CBC 07/11/2016 [facility] White Blood Count 13.7 K/uL High 3.1-10.7 [address] [place] [address] [phone] Red Blood Count 3.93 M/uL N 3.90-5.40 Hemoglobin 11.9 gm/dL N 11.6-15.8 Hematocrit 36.3 % 36.0-46.1 Mean Cell Volume 92.4 fl N 80.9-99.0 Mean Corpuscular HGB 30.3 pg N 25.9-32.7 Mean Corpuscular HGB Conc 32.8 g/dL N 30.8-34.3 Platelet Count 331 K/uL N 150-400 Red Cell Distri Width %CV 12.7 % N 11.7-14.4 Mean Platelet Volume 10.6 fL N 8.9-12.4 Comprehensive Metabolic 10/31/2015 [facility] Glucose 124 mg/dL High 74-106 Panel [address] [place] [address] [phone] BUN 14 mg/dL 7-18 Creatinine 0.9 mg/dL [...] 75 U/L 45-117 CBC W/Automated Diff 10/31/2015 [facility] White Blood 7.3 K/uL 3.1-10.[address] [place] [address] [phone] Red Blood Count 4.68 M/uL 3.90-5.40 Hemoglobin [...] % 40.4-72.8 Lymph % 31.0 % 17.0-46.1 [place] % 6.8 % 4.3-13.2 Eo% 4.2 % 0.0-6.6 Bas% 0.8 % 0.0-1.1 Neut# 4.19 K/uL 1.8-7.0 Lymph # 2.27 K/uL 1.8-7.0 [place] # 0.50 K/uL 0.3-0.9 Eos # 0.31 K/uL 0.0-0.5 Baso # 0.06 K/uL 0.0-0.1 Laboratory 10/31/2015 [facility] Thyroid Stim 3.53 0.30-4.20 test finding [address] Hormone uIU/[place] [address] [phone] Laboratory 10/29/2015 [facility] Cytology SEE 30 , test finding [phone] Interface Order RESULT 31 BELOW Laboratory 10/29/2015 [facility] Cytopathology Results 32 test finding [address] Cervix/[place] [address] [phone] Laboratory 07/19/2013 N2N/CCD Import Cytology Pap See Note 33 test finding Laboratory 06/21/2012 N2N/CCD Import Cytology Pap HPV HR- 34 test finding LR- Laboratory 06/20/2011 [facility] Fibroid Or See Note 35 test finding [address] [place] [address] Uterus [phone] CBC Auto Diff 03/25/2011 N2N/CCD Import Abs [...] measured by Gisela Buddy Methodology Performed at: RN - [facility] [address] [id number] Conical Mixer: Cecily Draper MD, Phone: [phone] 4 [id number] 5 Platelets clumped. Unable to perform accurate count. 6 No evidence of antibodies to B. burgdorferi detected. False negative results may occur in recently infected patients (<=2 weeks) due to low or undetectable antibody levels to B. burgdorferi. If recent exposure is suspected, a second sample should be collected and tested in 2-4 weeks. Test Performed by: [facility] [place] [address] 7 No bands detected 8 Specific serologic [...] screening test (e.g., EIA). Test Performed by: [place] [address] 9 DIZZY, "CHEST FLUTTER", COUGHING 10 Reference [...] for more aggressive treatment of glycemia. The [place] [employer] recommends that a primary goal [...] information may be found at www.kdoqi.org. 30 [id number] 31 SEE RESULT BELOW Name: ISAIAH CHEEMA : [address]: Shira MEAD Acct: [id number] Unit: [id number] AGE: 50 Location: [facility] Re10/29/15 SEX: F Status: REG REF SPEC: [id number] ANSON: 10/29/15-[address]: Shira MEAD REQ: [id number] RECD: 10/31/15-1056 STATUS: RAISSA GARCIA DR: MATHEW, Lab _ ORDERED: IMAGE ANALYSIS COMMENTS: [id number] FINAL DIAGNOSIS Negative for Intraepithelial lesion or Malignancy A. Ectocervical/Endocervical Specimen Adequacy: Satisfactory of evaluation Transformation zone component identified Patient Information: HPV: Thin Layer Pap Test w/reflex to high risk HPV RNA testing when ASCUS Actual Specimen Date: 10/29/15 Last Menstrual Date: 10/17/15 Signed (signature on file) PAOLO Huerta(ASCP) 10/31 1229 This Pap test was evaluated with the assistance of the NetacPrep Test Imaging System. Due to cytologic findings at the ethnoarchaeologist microscope, comprehensive manual rescreening by a Human Resource Manager may be required. The Pap Smear is [...] performed at Main Lab DEPARTMENT OF PATHOLOGY, [address] [place], [place] [id number] Nikita Velasco M.D. Director [facility] # [id number] 32 Report may be viewed in PCI: Medical Record Forms -> LAB-STEELSCOPE OPERATOR Testing referred to: [address] * [place] [address] Ph.#. [phone] Cytology Laboratory [address] [place] [address], [address] [place] [address] CYTOLOGY REPORT Name: Isaiah Cheema : 1965 (Age: 48) Sex: F Location: [facility] Med. Rec. # [id number] Date Collected: 07/19/2013 Billing #: [id number] Date Received: 07/19/2013 Physician(s): JIA REAGAN Source of Specimen: ENDOCERVICAL/ECTOCERVICAL THIN PREP Clinical Information: Date of Last Menstrual Period: None Provided Dysplasia/Cancer History: ASC-US: 06/21/12 [id number] Interpretation: NEGATIVE FOR INTRAEPITHELIAL LESION OR MALIGNANCY. FUNGAL ORGANISMS MORPHOLOGICALLY CONSISTENT WITH HUMAIRA SP. Specimen Adequacy: SATISFACTORY FOR EVALUATION. Additional Findings: ENDOCERVICAL/ TRANSFORMATION ZONE PRESENT. lar Electronic Signature PAOLO Evangelista (ASCP) Reported: 07/22/2013 Also seen by :APOLO Love (ASCP) [facility] Outreach Technical Laboratory [facility] ICD-9 Code(s) V72.31 A; 112.1 34 Cytology Laboratory [address] [place] [address], [address] [place] [address] CYTOLOGY REPORT Name: Isaiah Cheema : 1965 (Age: 46) Sex: F Location: [facility]. Rec. # Date Collected: 06/21/2012 Billing #: [id number] Date Received: 2012 Physician(s): SHIRA HUMPHREY Source of Specimen: ENDOCERVICAL/ ECTOCERVICAL THIN PREP Clinical Information: Date of Last Menstrual Period: 05/29/12 Menstrual History: Regular Specimen Adequacy: SATISFACTORY FOR EVALUATION. NO ENDOCERVICAL/TRANSFORMATION ZONE. General Categorization: SQUAMOUS ABNORMALITY Descriptive Evaluation: ATYPICAL SQUAMOUS CELLS OF UNDETERMINED SIGNIFICANCE (ASC-US). lr Electronic Signature Armani Crump MD Reported: 06/24/2012 Also seen by: PAOLO Ford (ASCP) [facility]ology [facility] HPV High Risk Date Ordered: 06/24/2012 Status: Signed Out Date Reported: 2012 High Risk NEGATIVE (HPV types 16, 18, 31, 33, 35, 39, 45, 51, 52, 56, 58, 59, 66, 68) [facility] HPV HR Electronic Signature Barbara F. [place], [place] (ASCP) Cytology [facility] HPV Low Risk Date Ordered: 06/24/2012 Status: Signed Out Date Reported: 06/28/2012 Low Risk NEGATIVE (HPV types 6, 11) In situ hybridization In situ hybridization was performed at [facility], [facility], [address] [place] [address], [address], [place], [place], [facility] The in situ hybridization report includes results which use analyte-specific reagents. These tests were developed and their performance characteristics determined by [facility]. They have not been cleared or approved by the U.S. Food and Drug Administration. The F.D.A. has determined that such clearance or approval is not necessary. The controls have been reviewed by the pathologist and are satisfactory. Electronic Signature Armani Crump MD [facility] ICD-9 Code(s) V72.31 A: 795.01 35 OPERATION/PROCEDURE Hysteroscopy, myomectomy, D+C, Novasure. DIAGNOSIS: PART 1: "ENDOMETRIAL CURETTINGS": ENDOMETRIAL POLYP. PART 2: "UTERINE FIBROID": FRAGMENTS OF HYALINIZED SMOOTH MUSCLE, COMPATIBLE WITH LEIOMYOMA. ENDOMETRIAL POLYP. JW/clf INTERPRETATION COMMENT Previous biopsy ([id number]) is reviewed and there is no evidence [...] CODE CODE: I Signed FRANCIS NUNEZ MD 0339 36 Basophilia % 37 Cytology Laboratory [address] [place] [address], [address] [place] [address] CYTOLOGY REPORT Name: Isaiah Cheema : 1965 (Age: 45) Sex: F Location: [facility] Soc. Sec. #: [id number] Date Collected: 03/25/2011 Billing #: [id number] Date Received: 03/26/2011 Physician(s): SHIRA HUMPHREY Source of Specimen: ENDOCERVICAL/ECTOCERVICAL THIN PREP Clinical Information: Date of Last Menstrual Period: 03/07/11 Menstrual History: Irregular Specimen Adequacy: SATISFACTORY FOR EVALUATION. NO ENDOCERVICAL/TRANSFORMATION ZONE. General Categorization: NEGATIVE FOR INTRAEPITHELIAL LESION OR MALIGNANCY. kfs Electronic Signature PAOLO Ibarra (ASCP) Reported: 03/28/2011 Also seen by:PAOLO Ibarra ( ASCP) Cytology [facility] ICD-9 Code(s) V72.31 Procedures Date Code Description Status 01/21/2018 05533 Eye Exam Est Patient Comprehensive Completed 09/21/2017 78193 Scanning Computerized Ophthalmic Diagnostic Imaging, Completed Posterior 09/21/2017 47322 Visual Field Exam Extended, Unilateral Or Bilateral Completed 09/21/2017 73425 Eye Exam Est Patient Comprehensive Completed 09/14/2017 39141 Echocardiogram Complete Completed 09/07/2017 64383 Stress Test Interpre And Report Only Completed 09/07/2017 96358 Stress Test Physician Super Only Completed 08/10/2017 03505 Eye Exam Est Patient Comprehensive Completed 07/22/2017 25457 EKG-Tracing And Report Completed 12/03/2016 [id number] Mammogram Completed 09/06/2015 58003 Scanning Computerized Ophthalmic Diagnostic Imaging, Completed Posterior 07/26/2015 01879 Visual Field Exam Extended, Unilateral Or Bilateral Completed 06/21/2015 11263 Ophthalmic Ultrasound, Corneal Pachymetry, Completed Unilateral/Bilateral 06/21/2015 63004 Fundus Photography W/Interpretation & Report Completed 06/21/2015 66835 Eye Exam New Patient Comprehensive Completed 06/21/2015 69102 Gonioscopy Completed 12/28/2014 36218500 Mammogram Completed 12/25/2014 [id number] Mammogram Completed 02/14/2014 36101 Pressurized/Non-Pressurized Inhalation Treatment,Acute Completed Obstructio 02/14/2014 76500 Pulse Oximetry Completed 02/01/2013 88022 Pressurized/Non-Pressurized Inhalation Treatment,Acute Completed Obstructio 02/01/2013 76862 Pulse Oximetry Completed 01/14/2013 90561 Pressurized/Non-Pressurized Inhalation Treatment,Acute Completed Obstructio 06/20/2011 90660 Anesthesia, Lower Abdomen Surgery Not Otherwise Spec Completed 06/17/2011 75216 EKG Interpretation And Report Only Completed 07/26/2010 41194 Pulse Oximetry Completed 07/26/2010 74763 Pressurized/Non-Pressurized Inhalation Treatment,Acute Completed Obstructio 04/20/2008 89469 Pulse Oximetry Completed 04/20/2008 23511 Pressurized/Non-Pressurized Inhalation Treatment,Acute Completed Obstructio 10/26/2000 97235 Cryocautery Of Cervix Completed 09/18/2000 25323 Colposcopy With Biopsy Completed 07/15/2000 16823 Post- Care Only Completed 06/03/2000 07513 Section Global Care Completed Encounters Type Date Location Provider Dx Diagnosis Office Visit 05/14/2018 Primary Care Compagni, Marianne J20.9 Acute bronchitis, 1:45p Office H., [place] unspecified Office Visit 12/04/2017 Primary Care Porfirio M54.2 [facility]ervicalgia 10:30a [facility] Benign paroxysmal vertigo, unspecified ear E03.9 [...] unspecified Office Visit 06/29/2017 9:45a Primary Care Porfirio R07.9 Chest pain, Office Shira, [facility] unspecified J45.30 Mild persistent asthma, uncomplicated R00.2 Palpitations Office Visit 04/28/2017 9:30a Primary Care Sarah, H66.92 Otitis media , Office Keara Husain unspecified, left ear Office Visit 02/13/2017 1:30p Primary Care Porfirio, N39.0 Urinary tract Office [facility] infection, site not specified N77.1 Vaginitis, vulvitis and vulvovaginitis in dis classd elsr J06.9 Acute upper respiratory infection, unspecified Office Visit 11/28/2016 10:15a Primary Care Porfirio H81.10 Benign paroxysmal Office Shira, [facility] vertigo, unspecified ear D64.9 Anemia, unspecified Z12.31 Encntr screen mammogram for malignant neoplasm of breast R73.9 Hyperglycemia, unspecified N39.41 Urge incontinence Office Visit 10/15/2016 3:40p Primary Care Jeison Hernandez, J01.90 Acute sinusitis, Office M.DJenn unspecified J45.909 Unspecified asthma, uncomplicated Office Visit 05/15/2016 10:00a Primary Care Porfirio, N92.4 Excessive bleeding Office [place], [facility] in the premenopausal period D25.9 Leiomyoma of uterus, unspecified Office Visit 05/07/2016 11:15a Primary Care Porfirio, J02.9 Acute pharyngitis, Office Shira, [facility] unspecified Office Visit 04/02/2016 10:00a Primary Care Porfirio, B86 Scabies Office Shira, [facility] Office Visit 02/05/2016 2:15p Primary Care Porfirio, J06.9 Acute upper Office Shira, [facility] respiratory infection, unspecified Office Visit 10/29/2015 2:15p Primary Care Porfirio, Z00.01 Encounter for Office [facility] general adult medical exam w abnormal findings Z12.4 Encounter for screening for malignant neoplasm of cervix N92.6 Irregular menstruation, unspecified J45.909 Unspecified asthma, uncomplicated Office Visit 09/26/2015 9:45a Primary Care Porfirio, R03.0 Elevated Office [facility] blood-pressure reading, w/o diagnosis of htn Office Visit 09/13/2015 10:30a Primary Care Porfirio, J30.9 Allergic rhinitis, Office [place], [facility] unspecified R03.0 Elevated blood-pressure reading, w/o diagnosis of htn G56.01 Carpal tunnel syndrome, right upper limb H81.10 Benign paroxysmal vertigo, unspecified ear Office Visit 09/06/2015 9:15a Ophthalmology Gerald Prado, H40.013 Open angle with MD borderline findings, low risk, bilateral H04.123 Dry eye syndrome of bilateral lacrimal glands Office Visit 07/26/2015 Ophthalmology Gerald Prado, H40.013 Open angle with 9:30a borderline findings, low risk, bilateral Office Visit 10/24/2014 Primary Care Office Porfirio, V72.31 Routine [employer] Operator 1:30p Shira, Examination [facility] V76.2 Screening Malignant Neoplasm Cervix 626.8 Menstruation & Other Abnormal Bleeding Disorders Other 493.90 Asthma Unspec W/O Status Asthmaticus Office Visit 07/07/2014 2:20p Family Medicine [place], 466.0 Bronchitis Acute [place] Jean Baptiste M.D. 493.92 Asthma Unspec W/ Acute Exacerbation Plan of Treatment Future Appointment(s):05/24/2018 2:15 pm - Gerald Prado MD at [id number]/ 08/2019 - Marianne Manning, PAJ20.9 Acute bronchitis, unspecifiedNew Medication:Prednisone 10 mg - 4 po daily x 2 days, then 3 po daily x 2 days, then 2 po daily x 2 days, 1 po daily x 3 daysComments:Suspect sx are viral. No need for Antibiotic.Would recommend inhaler and nebulizer as needed.Add in course of Prednisone.Call for worsening cough, feverFollow up:Follow-up as needed
[2018-06-10 17:10] VITALS: BP 158/74
[2018-06-10] MEDS ORDERED: Albuterol/Ipratropium NEB.SOL* Albuterol 2.5 MG/Ipratropium 0.5 MG 3 ML INH ONE (18:05)
--- NOTE | 2018-06-10 18:08 | UC ---
Respiratory Complaint HPI - HPI Summary HPI Summary: patient has hx of asthma, has a rescue inhaler, and take singular daily. today more SOB, wheezing, not responding to her medications. has had cold symtpoms - History of Current Complaint Chief Complaint: UCRespiratory Stated Complaint: WHEEZING,SOB Time Seen by Provider: 06/10/18 18:00 Hx Obtained From: Patient Hx Last Menstrual Period: july 13, 2014 ?: No Onset/Duration: Sudden Onset, Lasting Days Timing: Constant Severity Initially: Mild Severity Currently: Mild Pain Intensity: 0 Character: Cough: Nonproductive Aggravating Factors: Allergens, Exertion, Deep Breaths Alleviating Factors: Nothing Associated Signs And Symptoms: Positive: Wheezing, URI - Allergies/Home Medications Allergies/Adverse Reactions: Allergies Allergy/AdvReac Type Severity Reaction Status Date / Time Sulfa (Sulfonamide Allergy See Comment Verified 06/10/18 17:10 Antibiotics) PMH/Surg Hx/FS Hx/Imm Hx Previously Healthy: Yes - Surgical History Surgical History: Yes Surgery Procedure, Year, and Place: fibroid removal-. Hysterectomy 07/2016 - Family History Known Family History: Positive: Cardiac Disease, Hypertension - Social History Alcohol Use: Rare Substance Use Type: None Smoking Status (MU): Never Smoked Tobacco Type: Cigarettes Have You Smoked in the Last Year: No Review of Systems All Other Systems Reviewed And Are Negative: Yes Constitutional: Positive: Negative Skin: Positive: Negative Eyes: Positive: Negative ENT: Positive: Sore Throat, Nasal Discharge Respiratory: Positive: Shortness Of Breath, Cough Cardiovascular: Positive: Negative Gastrointestinal: Positive: Negative Genitourinary: Positive: Negative Motor: Positive: Negative Neurovascular: Positive: Negative Musculoskeletal: Positive: Negative Neurological: Positive: Negative Psychological: Positive: Negative Is Patient Immunocompromised?: No Physical Exam Triage Information Reviewed: Yes Appearance: Well-Nourished, Ill-Appearing, Pain Distress Vital Signs: Initial Vital Signs Temp 98.2 F 06/10/18 17:06 Pulse 98 06/10/18 17:06 Resp 23 06/10/18 17:06 BP 158/74 06/10/18 17:06 Pulse Ox 96 06/10/18 17:06 Vital Signs Reviewed: Yes Eye Exam: Normal ENT: Positive: Pharyngeal erythema, Nasal congestion, TM bulging Dental Exam: Normal Neck exam: Normal Neck: Positive: Supple, Nontender, No Lymphadenopathy Respiratory: Positive: Chest non-tender, No respiratory distress, No accessory muscle use, Wheezing - thorughout, Inspiration Cardiovascular Exam: Normal Cardiovascular: Positive: RRR, No Murmur, Pulses Normal Abdominal Exam: Normal Abdomen Description: Positive: Nontender, No Organomegaly, Soft Bowel Sounds: Positive: Present Musculoskeletal Exam: Normal Neurological Exam: Normal Neurological: Positive: Alert Psychological Exam: Normal Skin Exam: Normal Respiratory Course/Dx - Course Course Of Treatment: hx obtained, exam performed ,meds reviewed, neb treatement given, patient responded well. treated for asthma exacerbation - Differential Dx/Diagnosis Differential Diagnosis/HQI/PQRI: Asthma, Bronchitis Provider Diagnosis: Asthma, Bronchitis Discharge - Sign-Out/Discharge Documenting (check all that apply): Patient Departure All imaging exams completed and their final reports reviewed: No Studies - Discharge Plan Condition: Stable Disposition: HOME Prescriptions: Albuterol 2.5MG/3ML (0.083%)* [Ventolin 2.5 MG/3 ML NEB.MAO*] 1 udc NEB Q4H PRN #1 box PRN Reason: Sob/Wheezing Azithromycin TAB* [Zithromax TAB (Z-XU) 250 mg #6 tabs] 250 mg PO DAILY #5 tab Ipratropium 0.5MG/2.5ML NEB* [Atrovent 0.5 MG NEB.MAO*] 0.5 mg INH BID #10 neb.soln Patient Education Materials: Asthma (ED) Referrals: Mulu Monroy PA [Primary Care Provider] - Additional Instructions: 1. take the medication as prescribed. 2. FOllow up with Mulu monroy if symptoms persist, in the ER if they worsen - Billing Disposition and Condition Condition: STABLE Disposition: Home
== END 2018-06-10 19:01 | disposition home or self-care (01) ==
LOC: UCCORT 16:48
DX: J45.909 Unspecified asthma, uncomplicated (principal); Z88.2 Allergy status to sulfonamides
CPT/HCPCS: 99212; A9270-GY; G0463

== ENCOUNTER 2019-01-02 14:17 | Emergency (ER) | payer OTHER ==
--- OUTSIDE RECORDS SUMMARY | 2019-01-02 14:34 | XMS REPORT | Continuity of Care Document ---
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 Obstructive sleep apnea of adult Mulu [place] Monroy Onset: 06/12/2018 Note: APAP Palpitations Mulu [place] Monroy Onset: 06/12/2018 Social History Type Date Description Comments Sex Unknown Tobacco Use Start: Unknown End: Former Cigarette Smoker while in high school Unknown only Tobacco Use Start: Unknown Patient has never smoked Smoking Status Reviewed: 12/09/18 Patient has never smoked Allergies, Adverse Reactions, Alerts Active Allergies Reaction Severity Comments Date Sulfamethizole lip swelling 07/06/2018 Medications Active Medications SIG Qnty Indications Ordering Date Provider Nitrofurantoin 1 by mouth twice a 20caps N39.0 Eyad 12/09/2018 Macrocrystal day MD Xiomara 100mg Capsules Loratadine once a day for 90caps Eyad 07/06/2018 10mg Capsules allergies as MD Xiomara needed Albuterol Sulfate 1 application Eyad 06/12/2018 every 4 hours as MD Xiomara (2.5mg/3ML) 0.083% needed Nebulizer Ipratropium Baltic 1 unit dose via Eyad 06/12/2018 0.02% nebulizer q 6 hr MD Xiomara Solution prn Levothyroxine Sodium Take One Tablet By 90tabs Eyad 06/12/2018 Mouth Every Day MD Xiomara 75mcg Tablets Montelukast Sodium 1 by mouth every 90tabs Eyad 06/12/2018 10mg day MD Xiomara Tablets Ventolin HFA 1-2 inhalations Eyad 06/12/2018 108(90Base) every 4 hour as MD Xiomara mcg/Act Aerosol needed wheeze, cough Fluticasone Propionate 2 sprays to each Eyad 06/12/2018 nare q day MD Xiomara 50mcg/Act Suspension Ibuprofen 1 tab by mouth 60tabs Eyad 06/12/2018 800mg Tablets every 6 hours as MD Xiomara needed pain, with food Latanoprost 1 drop both eyes Gerald Prado, 0.005% every night M.DJenn Solution History Medications Doxycycline Hyclate 1 tab ( or 20tabs W57.xxxA Eyad Solano, 2018 - capsule ) by 12/09/2018 100mg Tablets mouth twice a day Nebulizer for daily use 1unadams J45.41 Eyad Solano, 07/06/2018 - Device 12/09/2018 Immunizations Description No Information Available Vital Signs Date Vital Result Comment 12/09/2018 4:33pm Weight 233.00 lb BP Systolic 138 mmHg BP Diastolic 68 mmHg Body Temperature 99.0 F 07/21/2018 2:10pm Weight 230.00 lb Heart Rate 83 /min BP Systolic 130 mmHg BP Diastolic 78 mmHg O2 % BldC Oximetry 97 % Results Description No Information Available Procedures Date Code Description Status 09/21/2018 001033287 Diabetic Retinal Eye Exam Completed 05/24/2018 [id number] Diabetic Retinal Eye Exam Completed 12/03/2016 [id number] Mammogram Completed Medical Devices Description No Information Available Encounters Type Date Location Provider Dx Diagnosis Office Visit 07/21/2018 [facility] Primary Care Mulu W57.xxxA Bit/stung by 2:00p [place] nonvenom insect & oth nonvenom arthropods, init Office Visit 07/06/2018 [facility] Primary Care Mulu J45.41 Moderate persistent 2:15p [place] asthma with (acute) exacerbation M54.2 Cervicalgia Assessments Date Code Description Provider 12/09/2018 N39.0 Urinary tract infection, site not Eyad Solano MD specified 07/21/2018 W57.xxxA Bitten or stung by nonvenomous insect and [place]te other nonvenomous 07/06/2018 J45.41 Moderate persistent asthma with (acute) [place] exacerbation 07/06/2018 M54.2 Cervicalgia [place] Plan of Treatment 12/09/2018 - Eyad Solano MDN39.0 Urinary tract infection, site not specifiedNew Medication:Nitrofurantoin Macrocrystal 100 mg - 1 by mouth twice a day Functional Status Description No Information Available Mental Status Description No Information Available Referrals Description No Information Available
[2019-01-02 15:01] VITALS: BP 120/47
--- NOTE | 2019-01-02 15:35 | UC ---
Ear Complaint HPI - HPI Summary HPI Summary: This AM woke up w/ plugged feeling in R ear. she does report allergies. has some flonase at home but has not used it. denies fever. did use q tip this AM to help clean it out. - History of Current Complaint Chief Complaint: UCEar Stated Complaint: RT EAR COMPLAINT Time Seen by Provider: 01/02/19 15:15 Hx Obtained From: Patient Hx Last Menstrual Period: july 13, 2014 Pain Intensity: 0 Aggravating Factors: Nothing Alleviating Factors: Nothing Associated Signs/Symptoms: Negative: Hearing Loss, Foreign Body Sensation, Trauma to Ear Related History: Seasonal Allergies - Allergies/Home Medications Allergies/Adverse Reactions: Allergies Allergy/AdvReac Type Severity Reaction Status Date / Time Sulfa (Sulfonamide Allergy See Comment Verified 01/02/19 15:01 Antibiotics) Home Medications: Home Medications Ipratropium 0.5MG/2.5ML NEB* [Atrovent 0.5 MG NEB.MAO*] 0.5 mg INH BID PRN 01/02 [History Confirmed 01/02/19] PMH/Surg Hx/FS Hx/Imm Hx Previously Healthy: Yes Respiratory History: Asthma - Surgical History Surgical History: Yes Surgery Procedure, Year, and Place: fibroid removal-. Hysterectomy 07/2016 - Family History Known Family History: Positive: Cardiac Disease, Hypertension - Social History Alcohol Use: Rare Substance Use Type: None Smoking Status (MU): Never Smoked Tobacco Type: Cigarettes Have You Smoked in the Last Year: No Review of Systems All Other Systems Reviewed And Are Negative: Yes Constitutional: Negative: Fever Skin: Negative: Rash ENT: Positive: Ear Ache - R, more of a 'plugged feeling'. Negative: Sore Throat Respiratory: Negative: Cough Neurological: Negative: Headache Physical Exam Triage Information Reviewed: Yes Appearance: Well-Appearing Vital Signs: Initial Vital Signs Temp 97.9 F 01/02/19 14:56 Pulse 81 01/02/19 14:56 Resp 16 01/02/19 14:56 BP 120/47 01/02/19 14:56 Pulse Ox 99 01/02/19 14:56 Vital Signs Reviewed: Yes Eyes: Positive: Conjunctiva Clear ENT: Positive: Pharynx normal, TMs normal - bilat, Uvula midline. Negative: Sinus tenderness Respiratory: Positive: No respiratory distress Ear Complaint Course/Dx - Course Course Of Treatment: R ear discomfort likely related to allergies and nasal congestion. Canals were clear on exam and tx will be focused on her allergy symptoms. No intervention during visit as there was no impacted cerumen. vitals good. - Differential Dx/Diagnosis Differential Diagnosis/HQI/PQRI: Cerumen Impaction, Otitis Externa, Otitis Media , Perforated TM, Other Provider Diagnosis: Discomfort of right ear Discharge ED - Sign-Out/Discharge Documenting (check all that apply): Patient Departure All imaging exams completed and their final reports reviewed: No Studies - Discharge Plan Condition: Good Disposition: HOME Prescriptions: Fluticasone NASAL SPRAY 50MCG* [Flonase NASAL SPRAY 50MCG*] 2 spray BOTH NARES DAILY #1 btl Patient Education Materials: Allergies (ED) Referrals: Mulu Monroy PA [Primary Care Provider] - Additional Instructions: If not improving please f/u w/ pcp - Billing Disposition and Condition Condition: GOOD Disposition: Home - Attestation Statements Provider Attestation: I was available for consult. This patient was seen by the LEX[facility]. The patient was not presented to , seen by or examined by -Carola Wang MD
== END 2019-01-02 15:42 | disposition home or self-care (01) ==
LOC: UCCORT 14:17
DX: H93.8X1 Other specified disorders of right ear (principal); H92.01 Otalgia, right ear; J45.909 Unspecified asthma, uncomplicated; Z88.2 Allergy status to sulfonamides
CPT/HCPCS: 99212; G0463